=== PATIENT | female | born 1935 | race Hispanic/Latino ===

== ENCOUNTER 2021-05-05 18:22 | Inpatient (IN) | payer MEDICARE, MEDICAID ==
--- NOTE | 2021-05-05 19:50 | EDM.PDOC ---
<Km Taveras - Last Filed: 05/07/21 13:26> ED HPI GENERAL MEDICAL PROBLEM - General Chief Complaint: Skin Complaint Stated Complaint: PEÑA AMB Time Seen by Provider: 05/05/21 20:00 - Related Data Allergies Allergy/AdvReac Type Severity Reaction Status Date / Time carisoprodol [From Soma] Allergy Other Verified 05/05/21 19:11 fentanyl Allergy Other Verified 05/05/21 19:11 Sulfa (Sulfonamide Allergy Other Verified 05/05/21 19:11 Antibiotics) Home Meds: Home Meds Aspirin 1 tab PO DAILY 05/05/21 [History] Carboxymethylcellulose Sodium [Refresh Plus] 1 drop EYEBOTH BID 05/05/21 [History] Cholecalciferol (Vitamin D3) [Vitamin D3] 3 cap PO DAILY 05/05/21 [History] Clopidogrel Bisulfate [Plavix] 75 mg PO DAILY 05/05/21 [History] Furosemide [Lasix] 20 mg PO ASDIRECTED 05/05/21 [History] Gabapentin [Neurontin] 300 mg PO BEDTIME 05/05/21 [History] Insulin Detemir [Levemir Flextouch] 10 unit SQ DAILY 05/05/21 [History] Isosorbide Mononitrate [Imdur] 30 mg PO DAILY 05/05/21 [History] Levothyroxine [Synthroid] 100 mcg PO ACBREAKFAST 05/05/21 [History] Mirtazapine [Remeron] 15 mg PO BEDTIME 05/05/21 [History] Carboxymethylcellulose Sodium [Refresh Plus] 1 drop EYEBOTH Q4H PRN 05/06/21 [History] Hydrocodone/Acetaminophen [HYDROcodone-Acetaminophen 10-325 MG] 1 tab PO BID 05/06/21 [History] Hydrocodone/Acetaminophen [HYDROcodone-Acetaminophen 5-325 MG] 1 tab PO Q4H PRN 05/06/21 [History] cefTRIAXone Sodium [Ceftriaxone] 2 gm IV DAILY 05/06/21 [History] Past Medical History Cardiovascular History: Reports: Blood Clots/VTE/DVT, Heart Failure, High Cholesterol, Hypertension Other Gastrointestinal History: ulcerative colitis Musculoskeletal History: Reports: Arthritis Other Neuro History: craniotomy and excision of brain neoplasm Psychiatric History: Reports: Dementia, Depression Endocrine/Metabolic History: Reports: Hypomagnesemia - Past Surgical History GI Surgical History: Reports: Appendectomy, Cholecystectomy Other Female Surgeries/Procedures: excision of mammary duct fistula Social & Family History - Tobacco Use Tobacco Use Status *Q: Never Tobacco User Second Hand Smoke Exposure: No - Caffeine Use Caffeine Use: Reports: None - Recreational Drug Use Recreational Drug Use: No #1 Interpretation EKG Date: 05/05/21 Time: 19:34 Rhythm: A-Fib (Rate of 100 to 150 bpm) Rate (Beats/Min): 125 Wheeler: Normal P-Wave: Absent QRS: Other (Increased amplitude in both the limb and precordial leads.) ST-T: Other (Irregular baseline in the limb leads. No convincing evidence of any premature contractions) QT: Normal EKG Interpretation Comments: Abnormal ECG Departure - Departure Disposition: Admitted As Inpatient 64 Clinical Impression: Abscess, Perirectal abscess, New onset a-fib, Abnormal CT scan, chest, History of rectal cancer Heart failure Qualifiers: Heart failure type: unspecified Heart failure chronicity: unspecified Qualified Code(s): I50.9 - Heart failure, unspecified Type II diabetes mellitus Qualifiers: Diabetes mellitus detention insulin use: with detention use Diabetes mellitus complication status: with other specified complication Qualified Code(s): E11.69 - Type 2 diabetes mellitus with other specified complication Renal failure Qualifiers: Renal failure chronicity: unspecified chronicity Qualified Code(s): N19 - Unspecified kidney failure - Discharge Information Sepsis Event Note (ED) - Evaluation Sepsis Screening Result: No Definite Risk <Elver Allred - Last Filed: 05/10/21 14:17> ED HPI GENERAL MEDICAL PROBLEM - General Source of Information: Reports: Old Records, Other (Transfer records) History Limitations: Reports: Altered Mental Status - History of Present Illness INITIAL COMMENTS - FREE TEXT/NARRATIVE: Patient has been having right buttock pain and diarrhea for several weeks. Recently she had katie weak. She was taken to [facility] where a large perirectal abscess was found and she was transferred here for further care. Onset: Gradual Duration: Week(s): (4) Location: Reports: Abdomen, Back Quality: Reports: Dull Severity: Severe Worsens with: Reports: Movement Context: Reports: Other (infection) Associated Symptoms: Reports: No Other Symptoms Past Medical History Cardiovascular History: Reports: None, Heart Failure, High Cholesterol, Hypert ension Gastrointestinal History: Reports: Other (See Below) (prior rectal cancer) Musculoskeletal History: Reports: Arthritis Endocrine/Metabolic History: Reports: Hypomagnesemia Other Oncologic History: Rectal cancer - Past Surgical History GI Surgical History: Reports: Appendectomy, Cholecystectomy Other GI Surgeries/Procedures: LAR for rectal cancer with ileostomy 2012 then ileostomy reversal 2013 ED ROS GENERAL - Review of Systems Review Of Systems: See Below Constitutional: Reports: Weakness, Fatigue, Decreased Appetite HEENT: Reports: No Symptoms Respiratory: Reports: No Symptoms Cardiovascular: Reports: No Symptoms Endocrine: Reports: No Symptoms GI/Abdominal: Reports: Anorexia, Diarrhea : Reports: No Symptoms Musculoskeletal: Reports: Other (right buttock pain) ED EXAM, SKIN/RASH Exam: See Below Exam Limited By: Altered Mental Status General Appearance: Alert, No Apparent Distress Respiratory/Chest: No Respiratory Distress, Lungs Clear, Normal Breath Sounds, No Accessory Muscle Use Cardiovascular: Normal Peripheral Pulses, Irregularly Irregular GI/Abdominal: Soft, Non-Tender, No Distention Extremities: Other (pain and induration in the right posterior thigh and right buttock.) Course - Vital Signs Last Recorded V/S: Last Vital Signs Temp 98.1 F 05/06/21 17:01 Pulse 78 05/06/21 17:01 Resp 18 05/06/21 17:01 BP 112/55 L 05/06/21 17:01 Pulse Ox 90 L 05/06/21 14:39 - Orders/Labs/Meds Labs: Laboratory Tests 05/05/21 05/05/21 05/05/21 Range/Units 19:20 19:20 19:20 WBC 19.93 H (3.98-10.04) K/mm3 RBC 3.56 L (3.98-5.22) M/mm3 Hgb 10.0 L (11.2-15.7) gm/dl Hct 31.9 L (34.1-44.9) % MCV 89.6 (79.4-94.8) fl MCH 28.1 (25.6-32.2) pg MCHC 31.3 L (32.2-35.5) g/dl RDW Std Deviation 50.3 H (36.4-46.3) fL Plt Count 398 H (182-369) K/mm3 MPV 9.0 L (9.4-12.3) fl Neut % (Auto) 85.7 H (34.0-71.1) % Lymph % (Auto) 6.0 L (19.3-51.7) % [place] % (Auto) 7.6 (4.7-12.5) % Eos % (Auto) 0.1 L (0.7-5.8) Baso % (Auto) 0.1 (0.1-1.2) % Neut # (Auto) 17.09 H (1.56-6.13) K/mm3 Lymph # (Auto) 1.20 (1.18-3.74) K/mm3 [place] # (Auto) 1.52 H (0.24-0.36) K/mm3 Eos # (Auto) 0.01 L (0.04-0.36) K/mm3 Baso # (Auto) 0.01 (0.01-0.08) K/mm3 Manual Slide Review Abnormal smear PT 12.5 H (9.7-12.0) SECONDS INR 1.13 APTT 28.7 (21.7-31.4) SECONDS Sodium 132 L (136-145) mEq/L Potassium 5.1 (3.5-5.1) mEq/L Chloride 96 L (98-107) mEq/L Carbon Dioxide 22 (21-32) mEq/L Anion Gap 19.1 H (5-15) BUN 46 H (7-18) mg/dL Creatinine 1.6 H (0.55-1.02) mg/dL Est Cr Clr Drug Dosing 17.79 mL/min Estimated GFR (MDRD) 30 (>60) mL/min BUN/Creatinine Ratio 28.8 H (14-18) Glucose 219 H (70-99) mg/dL POC Glucose (70-99) mg/dL Hemoglobin A1c ( - 5.6) % Calcium 8.2 L (8.5-10.1) mg/dL Magnesium (1.8-2.4) mg/dL Total Bilirubin 0.3 (0.2-1.0) mg/dL AST 38 H (15-37) U/L ALT 22 (14-59) U/L Alkaline Phosphatase 165 H (46-116) U/L C-Reactive Protein 32.0 H* (<1.0) mg/dL NT-Pro-B Natriuret Pep (0-450) pg/mL Total Protein 6.5 (6.4-8.2) g/dl Albumin 1.6 L (3.4-5.0) g/dl Globulin 4.9 gm/dL Albumin/Globulin Ratio 0.3 L (1-2) Influenza Type A RNA (NEGATIVE) Influenza Type B RNA (NEGATIVE) SARS-CoV-2 RNA (MADDY) (NEGATIVE) 05/05/21 05/05/21 05/05/21 Range/Units 19:20 19:20 19:20 WBC (3.98-10.04) K/mm3 RBC (3.98-5.22) M/mm3 Hgb (11.2-15.7) gm/dl Hct (34.1-44.9) % MCV (79.4-94.8) fl MCH (25.6-32.2) pg MCHC (32.2-35.5) g/dl RDW Std Deviation (36.4-46.3) fL Plt Count (182-369) K/mm3 MPV (9.4-12.3) fl Neut % (Auto) (34.0-71.1) % Lymph % (Auto) (19.3-51.7) % [place] % (Auto) (4.7-12.5) % Eos % (Auto) (0.7-5.8) Baso % (Auto) (0.1-1.2) % Neut # (Auto) (1.56-6.13) K/mm3 Lymph # (Auto) (1.18-3.74) K/mm3 [place] # (Auto) (0.24-0.36) K/mm3 Eos # (Auto) (0.04-0.36) K/mm3 Baso # (Auto) (0.01-0.08) K/mm3 Manual Slide Review PT (9.7-12.0) SECONDS INR APTT (21.7-31.4) SECONDS Sodium (136-145) mEq/L Potassium (3.5-5.1) mEq/L Chloride (98-107) mEq/L Carbon Dioxide (21-32) mEq/L Anion Gap (5-15) BUN (7-18) mg/dL Creatinine (0.55-1.02) mg/dL Est Cr Clr Drug Dosing mL/min Estimated GFR (MDRD) (>60) mL/min BUN/Creatinine Ratio (14-18) Glucose (70-99) mg/dL POC Glucose (70-99) mg/dL Hemoglobin A1c 6.7 H ( - 5.6) % Calcium (8.5-10.1) mg/dL Magnesium 2.0 (1.8-2.4) mg/dL Total Bilirubin (0.2-1.0) mg/dL AST (15-37) U/L ALT (14-59) U/L Alkaline Phosphatase (46-116) U/L C-Reactive Protein (<1.0) mg/dL NT-Pro-B Natriuret Pep 69308 H (0-450) pg/mL Total Protein (6.4-8.2) g/dl Albumin (3.4-5.0) g/dl Globulin gm/dL Albumin/Globulin Ratio (1-2) Influenza Type A RNA (NEGATIVE) Influenza Type B RNA (NEGATIVE) SARS-CoV-2 RNA (MADDY) (NEGATIVE) 05/05/21 05/05/21 Range/Units 19:49 20:16 WBC (3.98-10.04) K/mm3 RBC (3.98-5.22) M/mm3 Hgb (11.2-15.7) gm/dl Hct (34.1-44.9) % MCV (79.4-94.8) fl MCH (25.6-32.2) pg MCHC (32.2-35.5) g/dl RDW Std Deviation (36.4-46.3) fL Plt Count (182-369) K/mm3 MPV (9.4-12.3) fl Neut % (Auto) (34.0-71.1) % Lymph % (Auto) (19.3-51.7) % [place] % (Auto) (4.7-12.5) % Eos % (Auto) (0.7-5.8) Baso % (Auto) (0.1-1.2) % Neut # (Auto) (1.56-6.13) K/mm3 Lymph # (Auto) (1.18-3.74) K/mm3 [place] # (Auto) (0.24-0.36) K/mm3 Eos # (Auto) (0.04-0.36) K/mm3 Baso # (Auto) (0.01-0.08) K/mm3 Manual Slide Review PT (9.7-12.0) SECONDS INR APTT (21.7-31.4) SECONDS Sodium (136-145) mEq/L Potassium (3.5-5.1) mEq/L Chloride (98-107) mEq/L Carbon Dioxide (21-32) mEq/L Anion Gap (5-15) BUN (7-18) mg/dL Creatinine (0.55-1.02) mg/dL Est Cr Clr Drug Dosing mL/min Estimated GFR (MDRD) (>60) mL/min BUN/Creatinine Ratio (14-18) Glucose (70-99) mg/dL POC Glucose 196 H (70-99) mg/dL Hemoglobin A1c ( - 5.6) % Calcium (8.5-10.1) mg/dL Magnesium (1.8-2.4) mg/dL Total Bilirubin (0.2-1.0) mg/dL AST (15-37) U/L ALT (14-59) U/L Alkaline Phosphatase (46-116) U/L C-Reactive Protein (<1.0) mg/dL NT-Pro-B Natriuret Pep (0-450) pg/mL Total Protein (6.4-8.2) g/dl Albumin (3.4-5.0) g/dl Globulin gm/dL Albumin/Globulin Ratio (1-2) Influenza Type A RNA Negative (NEGATIVE) Influenza Type B RNA Negative (NEGATIVE) SARS-CoV-2 RNA (MADDY) Negative (NEGATIVE) Meds: Medications Discontinued Medications Generic Name Dose Route Start Last Admin Trade Name Freq PRN Reason Stop Dose Admin Acetaminophen 650 mg 05/05/21 21:14 Acetaminophen 325 Mg Tab PO Q4H PRN Pain (Mild 1-3)/fever Hydrocodone Bitart/Acetaminophen 1 tab 05/05/21 21:14 05/06/21 17:07 Acetaminophen/Hydrocodone 325-5 Mg Tab PO 1 tab Q4H PRN Administration Pain (moderate 4-6) Artificial Tears 0 ml 05/06/21 09:00 05/06/21 09:25 Carboxymethylcellulose Sodium 1% Ophth Gel 15 Ml Bottle EYEBOTH 1 drop BID JAZIEL Administration Aspirin 81 mg 05/06/21 09:00 05/06/21 09:18 Aspirin 81 Mg Tab.Ec PO 81 mg DAILY JAZIEL Administration Enoxaparin Sodium 30 mg 05/06/21 09:00 Enoxaparin 30 Mg/0.3 Ml Syringe SUBCUT DAILY [facility] Heparin Sodium (Porcine) 5,000 units 05/06/21 08:45 05/06/21 09:18 Heparin Sodium 5,000 Units/Ml Vial SUBCUT 5,000 units Q8H JAZIEL Administration Hydromorphone HCl 0.5 mg 05/05/21 21:14 Hydromorphone 0.5 Mg/0.5 Ml Syringe IVPUSH Q2H PRN Pain (severe 7-10) Lactated Ringer's 1,000 mls @ 100 mls/hr 05/05/21 21:15 05/06/21 15:11 Ringers, Lactated IV 100 mls/hr ASDIRECTED JAZIEL Administration Piperacillin Sod/Tazobactam 100 mls @ 200 mls/hr 05/05/21 23:45 05/06/21 00:13 Sod 4.5 gm/ Sodium Chloride IV 05/06/21 00:14 200 mls/hr ONETIME ONE Administration Piperacillin Sod/Tazobactam 100 mls @ 25 mls/hr 05/06/21 12:00 05/06/21 12:22 Sod 4.5 gm/ Sodium Chloride IV 25 mls/hr Q12H JAZIEL Administration Lactated Ringer's 500 mls @ 999 mls/hr 05/06/21 05:08 05/06/21 05:35 Ringers, Lactated IV 05/06/21 05:39 999 mls/hr ASDIRECTED JAZIEL Administration Lactated Ringer's 1,000 mls @ 999 mls/hr 05/06/21 07:36 05/06/21 08:09 Ringers, Lactated IV 05/06/21 08:36 999 mls/hr .BOLUS ONE Administration Lactated Ringer's 500 mls @ 999 mls/hr 05/06/21 09:39 05/06/21 10:12 Ringers, Lactated IV 05/06/21 10:09 999 mls/hr .BOLUS ONE Administration Insulin Aspart 0 unit 05/05/21 22:00 Insulin Aspart Protamine/Insulin Aspart 70-30 100 Units/Ml 10 Ml Vial SUBCUT QIDACANDBED JAZIEL Protocol Insulin Glargine 15 unit 05/06/21 09:00 05/06/21 09:25 Insulin Glargine,Hum.Rec.Anlog 100 Unit/Ml 3 Ml Pen SUBCUT 15 units DAILY [facility] Administration Insulin Glargine 5 unit 05/07/21 09:00 Insulin Glargine,Hum.Rec.Anlog 100 Unit/Ml 3 Ml Pen SUBCUT DAILY [facility] Insulin Human Lispro 0 unit 05/06/21 07:30 05/06/21 08:11 Insulin Lispro 100 Unit/Ml 3 Ml Kwikpen SUBCUT 2 units WITHMEALSANDBED [facility] Administration Protocol Insulin Human Lispro 0 unit 05/06/21 12:00 05/06/21 12:03 Insulin Lispro 100 Unit/Ml 3 Ml Kwikpen SUBCUT Not Given Q6H [facility] Protocol Isosorbide Mononitrate 30 mg 05/06/21 09:00 05/06/21 09:25 Isosorbide Mononitrate 30 Mg Tab.Er PO Not Given DAILY [facility] Levothyroxine Sodium 100 mcg 05/06/21 09:00 05/06/21 09:18 Levothyroxine 100 Mcg Tab PO 100 mcg ACBREAKFAST JAZIEL Administration Metoprolol Tartrate 5 mg 05/05/21 22:45 05/05/21 23:50 Metoprolol Tartrate 5 Mg/5 Ml Sdv IVPUSH 05/05/21 22:46 5 mg ONETIME ONE Administration Metoprolol Tartrate 2.5 mg 05/06/21 08:46 Metoprolol Tartrate 5 Mg/5 Ml Sdv IVPUSH Q4H PRN Tachycardia Ondansetron HCl 4 mg 05/05/21 21:14 Ondansetron 4 Mg/2 Ml Sdv IV Q4H PRN Nausea/Vomiting Simvastatin 40 mg 05/06/21 21:00 Simvastatin 40 Mg Tab PO BEDTIME [facility] Zolpidem Tartrate 5 mg 05/05/21 21:14 Zolpidem 5 Mg Tab PO BEDTIME PRN Sleep Departure - Departure Time of Disposition: 20:40 - Discharge Information *PRESCRIPTION DRUG MONITORING PROGRAM REVIEWED*: Not Applicable *COPY OF PRESCRIPTION DRUG MONITORING REPORT IN PATIENT HERMILA: Not Applicable - Problem List Review Problem List Initiated/Reviewed/Updated: No - Assessment/Plan Assessment:: Patient with large perirectal abscess. I am concerned that the patient may have disruption of her colorectal anastomosis and may need extensive surgical debridement and diversion. Given her comorbidities, it is best she gets transferred to a tertiary care center. Plan: Please see H&P from the day of admission for complete plan. - admit, IV abx, Afib control, monitor, then transfer as soon as a bed becomes available at a tertiary care center. This plan was discussed with the patient's POA who agreed.
[2021-05-05 19:54] LABS: HEMOGLOBIN A1C 6.7 %
[2021-05-05 20:23] LABS: CORONAVIRUS COVID-19 NAA NEGATIVE (NEGATIVE)
--- NOTE | 2021-05-05 21:04 | PCM.HP.2 ---
H&P History of Present Illness - General Date of Service: 05/05/21 Source of Information: Patient - History of Present Illness Initial Comments - Free Text/Narative: Patient was transferred from [facility] for perirectal abscess. Patient is a poor historian, part of the information is obtained from chart review. She reports that she has been having right buttock pain for sometimes now, about two weeks. This was associated with some chills but no fevers. The pain worsened to a point where she had to get an evaluation that's why she went to the [facility] ER. At the Er there, she was found to have extensive perirectal abscess. Due to lack of beds, I was called about the patient and agree that she should be transferred here for further evaluation. Per her chart review, I found out that she had rectal cancer s/p LAR with diverting loop ileostomy in 2012 and she underwent ileostomy reversal in 2013. Not clear about her follow up colonoscopies. She has Afib, CHF, DM2, Hypothyroidism, depression, Crohn's disease, mixed hyperlipidemia, CKD, Confusion state, Orthostatic hypotension. I reviewed her CT imaging, she has an extensive perirectal abscess starting from what appears to be her colorectal anastomosis and extending through the right gluteal muscles into the right hamstring muscles.She is on ASA and Plavix. Onset of Symptoms: Reports: Gradual Duration of Symptoms: Reports: Week(s): (2), Getting Worse Location: Reports: Abdomen, Back, Lower Extremity, Right Quality: Reports: Ache Severity: Severe Improves with: Reports: None Worsens with: Reports: None Associated Symptoms: Reports: Malaise - Related Data Allergies/Adverse Reactions: Allergies Allergy/AdvReac Type Severity Reaction Status Date / Time carisoprodol [From Soma] Allergy Other Verified 05/05/21 19:11 fentanyl Allergy Other Verified 05/05/21 19:11 Sulfa (Sulfonamide Allergy Other Verified 05/05/21 19:11 Antibiotics) Past Medical History Cardiovascular History: Reports: Blood Clots/VTE/DVT, Heart Failure, High Cholesterol, Hypertension Other Gastrointestinal History: ulcerative colitis Musculoskeletal History: Reports: Arthritis Other Neuro History: craniotomy and excision of brain neoplasm Psychiatric History: Reports: Dementia, Depression Endocrine/Metabolic History: Reports: Hypomagnesemia - Past Surgical History GI Surgical History: Reports: Appendectomy, Cholecystectomy Other Female Surgeries/Procedures: excision of mammary duct fistula Social & Family History - Tobacco Use Tobacco Use Status *Q: Never Tobacco User Second Hand Smoke Exposure: No - Caffeine Use Caffeine Use: Reports: None - Recreational Drug Use Recreational Drug Use: No H&P Review of Systems - Review of Systems: Review Of Systems: See Below General: Reports: Chills HEENT: Reports: No Symptoms Pulmonary: Reports: No Symptoms Cardiovascular: Reports: No Symptoms, Blood Pressure Problem Gastrointestinal: Reports: No Symptoms Genitourinary: Reports: No Symptoms Musculoskeletal: Reports: Other (right buttock and lef pain) Exam - Exam Exam: See Below - Vital Signs Vital Signs: Last Vital Signs Temp 97.2 F 05/05/21 18:29 Pulse 94 05/05/21 18:29 Resp 18 05/05/21 18:29 BP 126/83 05/05/21 18:29 Pulse Ox 99 05/05/21 18:29 Weight: 63.957 kg - Exam Quality Assessment: Supplemental Oxygen General: Alert, Oriented, Cooperative Lungs: Clear to Auscultation, Normal Respiratory Effort Cardiovascular: Irregular Rhythm GI/Abdominal Exam: Soft, Non-Tender, No Distention, No Abnormal Bruit Extremities: Other (indurated but not non-erythematous right buttock, tender to palpation. Right hamstring is soft and non-indurated) - Patient Data Lab Results Last 24 hrs: Laboratory Results - last 24 hr 05/05/21 05/05/21 05/05/21 Range/Units 19:20 19:20 19:20 WBC 19.93 H (3.98-10.04) K/mm3 RBC 3.56 L (3.98-5.22) M/mm3 Hgb 10.0 L (11.2-15.7) gm/dl Hct 31.9 L (34.1-44.9) % MCV 89.6 (79.4-94.8) fl MCH 28.1 (25.6-32.2) pg MCHC 31.3 L (32.2-35.5) g/dl RDW Std Deviation 50.3 H (36.4-46.3) fL Plt Count 398 H (182-369) K/mm3 MPV 9.0 L (9.4-12.3) fl Neut % (Auto) 85.7 H (34.0-71.1) % Lymph % (Auto) 6.0 L (19.3-51.7) % [place] % (Auto) 7.6 (4.7-12.5) % Eos % (Auto) 0.1 L (0.7-5.8) Baso % (Auto) 0.1 (0.1-1.2) % Neut # (Auto) 17.09 H (1.56-6.13) K/mm3 Lymph # (Auto) 1.20 (1.18-3.74) K/mm3 [place] # (Auto) 1.52 H (0.24-0.36) K/mm3 Eos # (Auto) 0.01 L (0.04-0.36) K/mm3 Baso # (Auto) 0.01 (0.01-0.08) K/mm3 Manual Slide Review Abnormal smear PT 12.5 H (9.7-12.0) SECONDS INR 1.13 APTT 28.7 (21.7-31.4) SECONDS Sodium 132 L (136-145) mEq/L Potassium 5.1 (3.5-5.1) mEq/L Chloride 96 L (98-107) mEq/L Carbon Dioxide 22 (21-32) mEq/L Anion Gap 19.1 H (5-15) BUN 46 H (7-18) mg/dL Creatinine 1.6 H (0.55-1.02) mg/dL Est Cr Clr Drug Dosing 17.79 mL/min Estimated GFR (MDRD) 30 (>60) mL/min BUN/Creatinine Ratio 28.8 H (14-18) Glucose 219 H (70-99) mg/dL POC Glucose (70-99) mg/dL Hemoglobin A1c ( - 5.6) % Calcium 8.2 L (8.5-10.1) mg/dL Magnesium (1.8-2.4) mg/dL Total Bilirubin 0.3 (0.2-1.0) mg/dL AST 38 H (15-37) U/L ALT 22 (14-59) U/L Alkaline Phosphatase 165 H (46-116) U/L C-Reactive Protein 32.0 H* (<1.0) mg/dL NT-Pro-B Natriuret Pep (0-450) pg/mL Total Protein 6.5 (6.4-8.2) g/dl Albumin 1.6 L (3.4-5.0) g/dl Globulin 4.9 gm/dL Albumin/Globulin Ratio 0.3 L (1-2) 05/05/21 05/05/21 05/05/21 Range/Units 19:20 19:20 19:20 WBC (3.98-10.04) K/mm3 RBC (3.98-5.22) M/mm3 Hgb (11.2-15.7) gm/dl Hct (34.1-44.9) % MCV (79.4-94.8) fl MCH (25.6-32.2) pg MCHC (32.2-35.5) g/dl RDW Std Deviation (36.4-46.3) fL Plt Count (182-369) K/mm3 MPV (9.4-12.3) fl Neut % (Auto) (34.0-71.1) % Lymph % (Auto) (19.3-51.7) % [place] % (Auto) (4.7-12.5) % Eos % (Auto) (0.7-5.8) Baso % (Auto) (0.1-1.2) % Neut # (Auto) (1.56-6.13) K/mm3 Lymph # (Auto) (1.18-3.74) K/mm3 [place] # (Auto) (0.24-0.36) K/mm3 Eos # (Auto) (0.04-0.36) K/mm3 Baso # (Auto) (0.01-0.08) K/mm3 Manual Slide Review PT (9.7-12.0) SECONDS INR APTT (21.7-31.4) SECONDS Sodium (136-145) mEq/L Potassium (3.5-5.1) mEq/L Chloride (98-107) mEq/L Carbon Dioxide (21-32) mEq/L Anion Gap (5-15) BUN (7-18) mg/dL Creatinine (0.55-1.02) mg/dL Est Cr Clr Drug Dosing mL/min Estimated GFR (MDRD) (>60) mL/min BUN/Creatinine Ratio (14-18) Glucose (70-99) mg/dL POC Glucose (70-99) mg/dL Hemoglobin A1c 6.7 H ( - 5.6) % Calcium (8.5-10.1) mg/dL Magnesium 2.0 (1.8-2.4) mg/dL Total Bilirubin (0.2-1.0) mg/dL AST (15-37) U/L ALT (14-59) U/L Alkaline Phosphatase (46-116) U/L C-Reactive Protein (<1.0) mg/dL NT-Pro-B Natriuret Pep 26481 H (0-450) pg/mL Total Protein (6.4-8.2) g/dl Albumin (3.4-5.0) g/dl Globulin gm/dL Albumin/Globulin Ratio (1-2) 05/05/21 Range/Units 20:16 WBC (3.98-10.04) K/mm3 RBC (3.98-5.22) M/mm3 Hgb (11.2-15.7) gm/dl Hct (34.1-44.9) % MCV (79.4-94.8) fl MCH (25.6-32.2) pg MCHC (32.2-35.5) g/dl RDW Std Deviation (36.4-46.3) fL Plt Count (182-369) K/mm3 MPV (9.4-12.3) fl Neut % (Auto) (34.0-71.1) % Lymph % (Auto) (19.3-51.7) % [place] % (Auto) (4.7-12.5) % Eos % (Auto) (0.7-5.8) Baso % (Auto) (0.1-1.2) % Neut # (Auto) (1.56-6.13) K/mm3 Lymph # (Auto) (1.18-3.74) K/mm3 Mer[place] # (Auto) (0.24-0.36) K/mm3 Eos # (Auto) (0.04-0.36) K/mm3 Baso # (Auto) (0.01-0.08) K/mm3 Manual Slide Review PT (9.7-12.0) SECONDS INR APTT (21.7-31.4) SECONDS Sodium (136-145) mEq/L Potassium (3.5-5.1) mEq/L Chloride (98-107) mEq/L Carbon Dioxide (21-32) mEq/L Anion Gap (5-15) BUN (7-18) mg/dL Creatinine (0.55-1.02) mg/dL Est Cr Clr Drug Dosing mL/min Estimated GFR (MDRD) (>60) mL/min BUN/Creatinine Ratio (14-18) Glucose (70-99) mg/dL POC Glucose 196 H (70-99) mg/dL Hemoglobin A1c ( - 5.6) % Calcium (8.5-10.1) mg/dL Magnesium (1.8-2.4) mg/dL Total Bilirubin (0.2-1.0) mg/dL AST (15-37) U/L ALT (14-59) U/L Alkaline Phosphatase (46-116) U/L C-Reactive Protein (<1.0) mg/dL NT-Pro-B Natriuret Pep (0-450) pg/mL Total Protein (6.4-8.2) g/dl Albumin (3.4-5.0) g/dl Globulin gm/dL Albumin/Globulin Ratio (1-2) Result Diagrams: 05/05/21 19:20 05/05/21 19:20 Sepsis Event Note - Evaluation Sepsis Screening Result: No Definite Risk - Focused Exam Vital Signs: Vital Signs Temp Pulse Resp BP Pulse Ox 05/05/21 18:29 97.2 F 94 18 126/83 99 Problem List Initiated/Reviewed/Updated: No Orders Last 24hrs: Active Orders 24 hr Category Date Time Status POC Glucose [Blood Glucose Check, Bedside] [RC] ONETIME Care 05/05/21 18:42 Active Chest 1V Frontal [CR] Stat Exams 05/05/21 18:41 Taken BLOOD CULTURE [MREF] Stat Lab 05/05/21 19:07 Received BLOOD CULTURE [MREF] Stat Lab 05/05/21 19:20 Received COVID-19/FLU A+B [MOLEC] Stat Lab 05/05/21 19:49 Ordered Blood Culture x2 Reflex Set [OM.PC] Stat Oth 05/05/21 18:42 Ordered Assessment/Plan Comment:: Patient has an extensive perirectal abscess likely from dehiscence of her colorectal anastomosis. My concern is that she might have a rectal cancer recurrence causing all this. Plan - she needs to be transferred to a tertiary care center but no available beds in the [facility] at this time. So we will admit for expectant care at this time. We will consult hospitalist for assistance with medical management Abscess - Zosyn - IVF - NPO Afib - rate control - Hold Plavix CHF - BNP 71332 - Hold lasix at this time DM2 - SSI - Resume some home meds We will continue to monitor her status. - Mortality Measure Prognosis:: Poor (due to extent of her disease and comorbid conditions)
[2021-05-05] MEDS ORDERED: HYDROmorphone 0.5 MG/0.5 ML Syringe IVPUSH PRN (21:14)
[2021-05-05] MEDS ORDERED: Zolpidem 5 MG Tab PO PRN (21:14)
[2021-05-05] MEDS ORDERED: Acetaminophen/HYDROcodone 325-5 MG Tab PO PRN (21:14)
[2021-05-05] MEDS ORDERED: Ondansetron 4 MG/2 ML SDV IV PRN (21:14)
[2021-05-05] MEDS ORDERED: Acetaminophen 325 MG Tab PO PRN (21:14)
[2021-05-05] MEDS ORDERED: Insulin Aspart Protamine/Insulin Aspart 70-30 100 Units/ML 10 ML Vial SUBCUT SCH (22:00)
[2021-05-05] MEDS ORDERED: Metoprolol Tartrate 5 MG in Sodium Chloride 0.9% 50 ML IV ONE (22:32)
[2021-05-05] MEDS ORDERED: Metoprolol Tartrate 5 MG/5 ML SDV IVPUSH ONE (22:45)
[2021-05-05] MEDS: Lactated Ringers 1,000 ML IV SCH (23:04)
[2021-05-05] MEDS ORDERED: Piperacillin/Tazobactam 4.5 GM in Sodium Chloride 0.9% 100 ML IV ONE (23:45)
[2021-05-06] MEDS ORDERED: Lactated Ringers 500 ML IV SCH (05:08)
[2021-05-06] MEDS ORDERED: Insulin Lispro 100 Unit/ML 3 ML KwikPen SUBCUT SCH ×2 (07:30→12:00)
[2021-05-06] MEDS ORDERED: Lactated Ringers 1,000 ML IV ONE (07:36)
--- NOTE | 2021-05-06 08:03 | PCM.PN ---
- General Info Date of Service: 05/06/21 Subjective Update: Afib is now resolved. She does have occational PACs. Otherwise she does not have much complaints this AM. Functional Status: Reports: Pain Controlled - Review of Systems General: Reports: No Symptoms HEENT: Reports: No Symptoms Pulmonary: Reports: No Symptoms Cardiovascular: Reports: No Symptoms Gastrointestinal: Reports: No Symptoms Genitourinary: Reports: No Symptoms - Patient Data Vitals - Most Recent: Last Vital Signs Temp 97.9 F 05/06/21 04:56 Pulse 90 05/06/21 05:03 Resp 20 05/06/21 04:56 BP 110/47 L 05/06/21 06:14 Pulse Ox 90 L 05/06/21 04:56 Weight - Most Recent: 63.231 kg I&O - Last 24 Hours: Intake & Output 05/05/21 05/06/21 05/06/21 22:59 06:59 14:59 Intake Total 554 Balance 554 Lab Results Last 24 Hours: Laboratory Results - last 24 hr 05/05/21 05/05/21 05/05/21 Range/Units 19:20 19:20 19:20 WBC 19.93 H (3.98-10.04) K/mm3 RBC 3.56 L (3.98-5.22) M/mm3 Hgb 10.0 L (11.2-15.7) gm/dl Hct 31.9 L (34.1-44.9) % MCV 89.6 (79.4-94.8) fl MCH 28.1 (25.6-32.2) pg MCHC 31.3 L (32.2-35.5) g/dl RDW Std Deviation 50.3 H (36.4-46.3) fL Plt Count 398 H (182-369) K/mm3 MPV 9.0 L (9.4-12.3) fl Neut % (Auto) 85.7 H (34.0-71.1) % Lymph % (Auto) 6.0 L (19.3-51.7) % [place] % (Auto) 7.6 (4.7-12.5) % Eos % (Auto) 0.1 L (0.7-5.8) Baso % (Auto) 0.1 (0.1-1.2) % Neut # (Auto) 17.09 H (1.56-6.13) K/mm3 Lymph # (Auto) 1.20 (1.18-3.74) K/mm3 [place] # (Auto) 1.52 H (0.24-0.36) K/mm3 Eos # (Auto) 0.01 L (0.04-0.36) K/mm3 Baso # (Auto) 0.01 (0.01-0.08) K/mm3 Manual Slide Review Abnormal smear PT 12.5 H (9.7-12.0) SECONDS INR 1.13 APTT 28.7 (21.7-31.4) SECONDS Sodium 132 L (136-145) mEq/L Potassium 5.1 (3.5-5.1) mEq/L Chloride 96 L (98-107) mEq/L Carbon Dioxide 22 (21-32) mEq/L Anion Gap 19.1 H (5-15) BUN 46 H (7-18) mg/dL Creatinine 1.6 H (0.55-1.02) mg/dL Est Cr Clr Drug Dosing 17.79 mL/min Estimated GFR (MDRD) 30 (>60) mL/min BUN/Creatinine Ratio 28.8 H (14-18) Glucose 219 H (70-99) mg/dL POC Glucose (70-99) mg/dL Hemoglobin A1c ( - 5.6) % Calcium 8.2 L (8.5-10.1) mg/dL Magnesium (1.8-2.4) mg/dL Total Bilirubin 0.3 (0.2-1.0) mg/dL AST 38 H (15-37) U/L ALT 22 (14-59) U/L Alkaline Phosphatase 165 H (46-116) U/L C-Reactive Protein 32.0 H* (<1.0) mg/dL NT-Pro-B Natriuret Pep (0-450) pg/mL Total Protein 6.5 (6.4-8.2) g/dl Albumin 1.6 L (3.4-5.0) g/dl Globulin 4.9 gm/dL Albumin/Globulin Ratio 0.3 L (1-2) Influenza Type A RNA (NEGATIVE) Influenza Type B RNA (NEGATIVE) SARS-CoV-2 RNA (MADDY) (NEGATIVE) MRSA (PCR) 05/05/21 05/05/21 05/05/21 Range/Units 19:20 19:20 19:20 WBC (3.98-10.04) K/mm3 RBC (3.98-5.22) M/mm3 Hgb (11.2-15.7) gm/dl Hct (34.1-44.9) % MCV (79.4-94.8) fl MCH (25.6-32.2) pg MCHC (32.2-35.5) g/dl RDW Std Deviation (36.4-46.3) fL Plt Count (182-369) K/mm3 MPV (9.4-12.3) fl Neut % (Auto) (34.0-71.1) % Lymph % (Auto) (19.3-51.7) % [place] % (Auto) (4.7-12.5) % Eos % (Auto) (0.7-5.8) Baso % (Auto) (0.1-1.2) % Neut # (Auto) (1.56-6.13) K/mm3 Lymph # (Auto) (1.18-3.74) K/mm3 [place] # (Auto) (0.24-0.36) K/mm3 Eos # (Auto) (0.04-0.36) K/mm3 Baso # (Auto) (0.01-0.08) K/mm3 Manual Slide Review PT (9.7-12.0) SECONDS INR APTT (21.7-31.4) SECONDS Sodium (136-145) mEq/L Potassium (3.5-5.1) mEq/L Chloride (98-107) mEq/L Carbon Dioxide (21-32) mEq/L Anion Gap (5-15) BUN (7-18) mg/dL Creatinine (0.55-1.02) mg/dL Est Cr Clr Drug Dosing mL/min Estimated GFR (MDRD) (>60) mL/min BUN/Creatinine Ratio (14-18) Glucose (70-99) mg/dL POC Glucose (70-99) mg/dL Hemoglobin A1c 6.7 H ( - 5.6) % Calcium (8.5-10.1) mg/dL Magnesium 2.0 (1.8-2.4) mg/dL Total Bilirubin (0.2-1.0) mg/dL AST (15-37) U/L ALT (14-59) U/L Alkaline Phosphatase (46-116) U/L C-Reactive Protein (<1.0) mg/dL NT-Pro-B Natriuret Pep 04718 H (0-450) pg/mL Total Protein (6.4-8.2) g/dl Albumin (3.4-5.0) g/dl Globulin gm/dL Albumin/Globulin Ratio (1-2) Influenza Type A RNA (NEGATIVE) Influenza Type B RNA (NEGATIVE) SARS-CoV-2 RNA (MADDY) (NEGATIVE) MRSA (PCR) 05/05/21 05/05/21 05/06/21 Range/Units 19:49 20:16 02:11 WBC (3.98-10.04) K/mm3 RBC (3.98-5.22) M/mm3 Hgb (11.2-15.7) gm/dl Hct (34.1-44.9) % MCV (79.4-94.8) fl MCH (25.6-32.2) pg MCHC (32.2-35.5) g/dl RDW Std Deviation (36.4-46.3) fL Plt Count (182-369) K/mm3 MPV (9.4-12.3) fl Neut % (Auto) (34.0-71.1) % Lymph % (Auto) (19.3-51.7) % [place] % (Auto) (4.7-12.5) % Eos % (Auto) (0.7-5.8) Baso % (Auto) (0.1-1.2) % Neut # (Auto) (1.56-6.13) K/mm3 Lymph # (Auto) (1.18-3.74) K/mm3 [place] # (Auto) (0.24-0.36) K/mm3 Eos # (Auto) (0.04-0.36) K/mm3 Baso # (Auto) (0.01-0.08) K/mm3 Manual Slide Review PT (9.7-12.0) SECONDS INR APTT (21.7-31.4) SECONDS Sodium (136-145) mEq/L Potassium (3.5-5.1) mEq/L Chloride (98-107) mEq/L Carbon Dioxide (21-32) mEq/L Anion Gap (5-15) BUN (7-18) mg/dL Creatinine (0.55-1.02) mg/dL Est Cr Clr Drug Dosing mL/min Estimated GFR (MDRD) (>60) mL/min BUN/Creatinine Ratio (14-18) Glucose (70-99) mg/dL POC Glucose 196 H (70-99) mg/dL Hemoglobin A1c ( - 5.6) % Calcium (8.5-10.1) mg/dL Magnesium (1.8-2.4) mg/dL Total Bilirubin (0.2-1.0) mg/dL AST (15-37) U/L ALT (14-59) U/L Alkaline Phosphatase (46-116) U/L C-Reactive Protein (<1.0) mg/dL NT-Pro-B Natriuret Pep (0-450) pg/mL Total Protein (6.4-8.2) g/dl Albumin (3.4-5.0) g/dl Globulin gm/dL Albumin/Globulin Ratio (1-2) Influenza Type A RNA Negative (NEGATIVE) Influenza Type B RNA Negative (NEGATIVE) SARS-CoV-2 RNA (MADDY) Negative (NEGATIVE) MRSA (PCR) Negative 05/06/21 05/06/21 05/06/21 Range/Units 05:28 05:28 06:07 WBC 16.61 H (3.98-10.04) K/mm3 RBC 3.46 L (3.98-5.22) M/mm3 Hgb 9.5 L (11.2-15.7) gm/dl Hct 30.7 L (34.1-44.9) % MCV 88.7 (79.4-94.8) fl MCH 27.5 (25.6-32.2) pg MCHC 30.9 L (32.2-35.5) g/dl RDW Std Deviation 50.3 H (36.4-46.3) fL Plt Count 364 (182-369) K/mm3 MPV 9.0 L (9.4-12.3) fl Neut % (Auto) 84.8 H (34.0-71.1) % Lymph % (Auto) 7.7 L (19.3-51.7) % [place] % (Auto) 6.9 (4.7-12.5) % Eos % (Auto) 0 L (0.7-5.8) Baso % (Auto) 0.1 (0.1-1.2) % Neut # (Auto) 14.09 H (1.56-6.13) K/mm3 Lymph # (Auto) 1.28 (1.18-3.74) K/mm3 [place] # (Auto) 1.14 H (0.24-0.36) K/mm3 Eos # (Auto) 0.00 L (0.04-0.36) K/mm3 Baso # (Auto) 0.01 (0.01-0.08) K/mm3 Manual Slide Review PT (9.7-12.0) SECONDS INR APTT (21.7-31.4) SECONDS Sodium 135 L (136-145) mEq/L Potassium 5.0 (3.5-5.1) mEq/L Chloride 102 (98-107) mEq/L Carbon Dioxide 22 (21-32) mEq/L Anion Gap 16.0 H (5-15) BUN 51 H (7-18) mg/dL Creatinine 1.8 H (0.55-1.02) mg/dL Est Cr Clr Drug Dosing 15.82 mL/min Estimated GFR (MDRD) 27 (>60) mL/min BUN/Creatinine Ratio 28.3 H (14-18) Glucose 193 H (70-99) mg/dL POC Glucose 189 H (70-99) mg/dL Hemoglobin A1c ( - 5.6) % Calcium 8.2 L (8.5-10.1) mg/dL Magnesium (1.8-2.4) mg/dL Total Bilirubin (0.2-1.0) mg/dL AST (15-37) U/L ALT (14-59) U/L Alkaline Phosphatase (46-116) U/L C-Reactive Protein (<1.0) mg/dL NT-Pro-B Natriuret Pep (0-450) pg/mL Total Protein (6.4-8.2) g/dl Albumin (3.4-5.0) g/dl Globulin gm/dL Albumin/Globulin Ratio (1-2) Influenza Type A RNA (NEGATIVE) Influenza Type B RNA (NEGATIVE) SARS-CoV-2 RNA (MADDY) (NEGATIVE) MRSA (PCR) Med Orders - Current: Current Medications Acetaminophen (Acetaminophen 325 Mg Tab) 650 mg PO Q4H PRN PRN Reason: Pain (Mild 1-3)/fever Hydrocodone Bitart/Acetaminophen (Acetaminophen/Hydrocodone 325-5 Mg Tab) 1 tab PO Q4H PRN PRN Reason: Pain (moderate 4-6) Aspirin (Aspirin 81 Mg Tab.Ec) 81 mg PO DAILY [facility] Enoxaparin Sodium (Enoxaparin 30 Mg/0.3 Ml Syringe) 30 mg SUBCUT DAILY [facility] Hydromorphone HCl (Hydromorphone 0.5 Mg/0.5 Ml Syringe) 0.5 mg IVPUSH Q2H PRN PRN Reason: Pain (severe 7-10) Lactated Ringer's (Ringers, Lactated) 1,000 mls @ 100 mls/hr IV ASDIRECTED [facility] Last Admin: 05/05/21 23:04 Dose: 100 mls/hr Documented by: Piperacillin Sod/Tazobactam (Sod 4.5 gm/ Sodium Chloride) 100 mls @ 25 mls/hr IV Q12H [facility] Lactated Ringer's (Ringers, Lactated) 1,000 mls @ 999 mls/hr IV .BOLUS ONE Stop: 05/06/21 08:36 Insulin Human Lispro (Insulin Lispro 100 Unit/Ml 3 Ml Kwikpen) 0 unit SUBCUT WITHMEALSANDBED [facility]; Protocol Isosorbide Mononitrate (Isosorbide Mononitrate 30 Mg Tab.Er) 30 mg PO DAILY [facility] Ondansetron HCl (Ondansetron 4 Mg/2 Ml Sdv) 4 mg IV Q4H PRN PRN Reason: Nausea/Vomiting Simvastatin (Simvastatin 40 Mg Tab) 40 mg PO BEDTIME [facility] Zolpidem Tartrate (Zolpidem 5 Mg Tab) 5 mg PO BEDTIME PRN PRN Reason: Sleep Discontinued Medications Piperacillin Sod/Tazobactam (Sod 4.5 gm/ Sodium Chloride) 100 mls @ 200 mls/hr IV ONETIME ONE Stop: 05/06/21 00:14 Last Admin: 05/06/21 00:13 Dose: 200 mls/hr Documented by: Lactated Ringer's (Ringers, Lactated) 500 mls @ 999 mls/hr IV ASDIRECTED [facility] Stop: 05/06/21 05:39 Last Admin: 05/06/21 05:35 Dose: 999 mls/hr Documented by: Insulin Aspart (Insulin Aspart Protamine/Insulin Aspart 70-30 100 Units/Ml 10 Ml Vial) 0 unit SUBCUT QIDACANDBED [facility]; Protocol Metoprolol Tartrate (Metoprolol Tartrate 5 Mg/5 Ml Sdv) 5 mg IVPUSH ONETIME ONE Stop: 05/05/21 22:46 Last Admin: 05/05/21 23:50 Dose: 5 mg Documented by: - Exam General: Alert, Cooperative Lungs: Normal Respiratory Effort Cardiovascular: Regular Rate, Regular Rhythm GI/Abdominal Exam: Soft, Non-Tender - Patient Data Lab Results Last 24 hrs: Laboratory Results - last 24 hr 05/05/21 05/05/21 05/05/21 Range/Units 19:20 19:20 19:20 WBC 19.93 H (3.98-10.04) K/mm3 RBC 3.56 L (3.98-5.22) M/mm3 Hgb 10.0 L (11.2-15.7) gm/dl Hct 31.9 L (34.1-44.9) % MCV 89.6 (79.4-94.8) fl MCH 28.1 (25.6-32.2) pg MCHC 31.3 L (32.2-35.5) g/dl RDW Std Deviation 50.3 H (36.4-46.3) fL Plt Count 398 H (182-369) K/mm3 MPV 9.0 L (9.4-12.3) fl Neut % (Auto) 85.7 H (34.0-71.1) % Lymph % (Auto) 6.0 L (19.3-51.7) % [place] % (Auto) 7.6 (4.7-12.5) % Eos % (Auto) 0.1 L (0.7-5.8) Baso % (Auto) 0.1 (0.1-1.2) % Neut # (Auto) 17.09 H (1.56-6.13) K/mm3 Lymph # (Auto) 1.20 (1.18-3.74) K/mm3 [place] # (Auto) 1.52 H (0.24-0.36) K/mm3 Eos # (Auto) 0.01 L (0.04-0.36) K/mm3 Baso # (Auto) 0.01 (0.01-0.08) K/mm3 Manual Slide Review Abnormal smear PT 12.5 H (9.7-12.0) SECONDS INR 1.13 APTT 28.7 (21.7-31.4) SECONDS Sodium 132 L (136-145) mEq/L Potassium 5.1 (3.5-5.1) mEq/L Chloride 96 L (98-107) mEq/L Carbon Dioxide 22 (21-32) mEq/L Anion Gap 19.1 H (5-15) BUN 46 H (7-18) mg/dL Creatinine 1.6 H (0.55-1.02) mg/dL Est Cr Clr Drug Dosing 17.79 mL/min Estimated GFR (MDRD) 30 (>60) mL/min BUN/Creatinine Ratio 28.8 H (14-18) Glucose 219 H (70-99) mg/dL POC Glucose (70-99) mg/dL Hemoglobin A1c ( - 5.6) % Calcium 8.2 L (8.5-10.1) mg/dL Magnesium (1.8-2.4) mg/dL Total Bilirubin 0.3 (0.2-1.0) mg/dL AST 38 H (15-37) U/L ALT 22 (14-59) U/L Alkaline Phosphatase 165 H (46-116) U/L C-Reactive Protein 32.0 H* (<1.0) mg/dL NT-Pro-B Natriuret Pep (0-450) pg/mL Total Protein 6.5 (6.4-8.2) g/dl Albumin 1.6 L (3.4-5.0) g/dl Globulin 4.9 gm/dL Albumin/Globulin Ratio 0.3 L (1-2) Influenza Type A RNA (NEGATIVE) Influenza Type B RNA (NEGATIVE) SARS-CoV-2 RNA (MADDY) (NEGATIVE) MRSA (PCR) 05/05/21 05/05/21 05/05/21 Range/Units 19:20 19:20 19:20 WBC (3.98-10.04) K/mm3 RBC (3.98-5.22) M/mm3 Hgb (11.2-15.7) gm/dl Hct (34.1-44.9) % MCV (79.4-94.8) fl MCH (25.6-32.2) pg MCHC (32.2-35.5) g/dl RDW Std Deviation (36.4-46.3) fL Plt Count (182-369) K/mm3 MPV (9.4-12.3) fl Neut % (Auto) (34.0-71.1) % Lymph % (Auto) (19.3-51.7) % [place] % (Auto) (4.7-12.5) % Eos % (Auto) (0.7-5.8) Baso % (Auto) (0.1-1.2) % Neut # (Auto) (1.56-6.13) K/mm3 Lymph # (Auto) (1.18-3.74) K/mm3 [place] # (Auto) (0.24-0.36) K/mm3 Eos # (Auto) (0.04-0.36) K/mm3 Baso # (Auto) (0.01-0.08) K/mm3 Manual Slide Review PT (9.7-12.0) SECONDS INR APTT (21.7-31.4) SECONDS Sodium (136-145) mEq/L Potassium (3.5-5.1) mEq/L Chloride (98-107) mEq/L Carbon Dioxide (21-32) mEq/L Anion Gap (5-15) BUN (7-18) mg/dL Creatinine (0.55-1.02) mg/dL Est Cr Clr Drug Dosing mL/min Estimated GFR (MDRD) (>60) mL/min BUN/Creatinine Ratio (14-18) Glucose (70-99) mg/dL POC Glucose (70-99) mg/dL Hemoglobin A1c 6.7 H ( - 5.6) % Calcium (8.5-10.1) mg/dL Magnesium 2.0 (1.8-2.4) mg/dL Total Bilirubin (0.2-1.0) mg/dL AST (15-37) U/L ALT (14-59) U/L Alkaline Phosphatase (46-116) U/L C-Reactive Protein (<1.0) mg/dL NT-Pro-B Natriuret Pep 83637 H (0-450) pg/mL Total Protein (6.4-8.2) g/dl Albumin (3.4-5.0) g/dl Globulin gm/dL Albumin/Globulin Ratio (1-2) Influenza Type A RNA (NEGATIVE) Influenza Type B RNA (NEGATIVE) SARS-CoV-2 RNA (MADDY) (NEGATIVE) MRSA (PCR) 05/05/21 05/05/21 05/06/21 Range/Units 19:49 20:16 02:11 WBC (3.98-10.04) K/mm3 RBC (3.98-5.22) M/mm3 Hgb (11.2-15.7) gm/dl Hct (34.1-44.9) % MCV (79.4-94.8) fl MCH (25.6-32.2) pg MCHC (32.2-35.5) g/dl RDW Std Deviation (36.4-46.3) fL Plt Count (182-369) K/mm3 MPV (9.4-12.3) fl Neut % (Auto) (34.0-71.1) % Lymph % (Auto) (19.3-51.7) % [place] % (Auto) (4.7-12.5) % Eos % (Auto) (0.7-5.8) Baso % (Auto) (0.1-1.2) % Neut # (Auto) (1.56-6.13) K/mm3 Lymph # (Auto) (1.18-3.74) K/mm3 [place] # (Auto) (0.24-0.36) K/mm3 Eos # (Auto) (0.04-0.36) K/mm3 Baso # (Auto) (0.01-0.08) K/mm3 Manual Slide Review PT (9.7-12.0) SECONDS INR APTT (21.7-31.4) SECONDS Sodium (136-145) mEq/L Potassium (3.5-5.1) mEq/L Chloride (98-107) mEq/L Carbon Dioxide (21-32) mEq/L Anion Gap (5-15) BUN (7-18) mg/dL Creatinine (0.55-1.02) mg/dL Est Cr Clr Drug Dosing mL/min Estimated GFR (MDRD) (>60) mL/min BUN/Creatinine Ratio (14-18) Glucose (70-99) mg/dL POC Glucose 196 H (70-99) mg/dL Hemoglobin A1c ( - 5.6) % Calcium (8.5-10.1) mg/dL Magnesium (1.8-2.4) mg/dL Total Bilirubin (0.2-1.0) mg/dL AST (15-37) U/L ALT (14-59) U/L Alkaline Phosphatase (46-116) U/L C-Reactive Protein (<1.0) mg/dL NT-Pro-B Natriuret Pep (0-450) pg/mL Total Protein (6.4-8.2) g/dl Albumin (3.4-5.0) g/dl Globulin gm/dL Albumin/Globulin Ratio (1-2) Influenza Type A RNA Negative (NEGATIVE) Influenza Type B RNA Negative (NEGATIVE) SARS-CoV-2 RNA (MADDY) Negative (NEGATIVE) MRSA (PCR) Negative 05/06/21 05/06/21 05/06/21 Range/Units 05:28 05:28 06:07 WBC 16.61 H (3.98-10.04) K/mm3 RBC 3.46 L (3.98-5.22) M/mm3 Hgb 9.5 L (11.2-15.7) gm/dl Hct 30.7 L (34.1-44.9) % MCV 88.7 (79.4-94.8) fl MCH 27.5 (25.6-32.2) pg MCHC 30.9 L (32.2-35.5) g/dl RDW Std Deviation 50.3 H (36.4-46.3) fL Plt Count 364 (182-369) K/mm3 MPV 9.0 L (9.4-12.3) fl Neut % (Auto) 84.8 H (34.0-71.1) % Lymph % (Auto) 7.7 L (19.3-51.7) % [place] % (Auto) 6.9 (4.7-12.5) % Eos % (Auto) 0 L (0.7-5.8) Baso % (Auto) 0.1 (0.1-1.2) % Neut # (Auto) 14.09 H (1.56-6.13) K/mm3 Lymph # (Auto) 1.28 (1.18-3.74) K/mm3 [place] # (Auto) 1.14 H (0.24-0.36) K/mm3 Eos # (Auto) 0.00 L (0.04-0.36) K/mm3 Baso # (Auto) 0.01 (0.01-0.08) K/mm3 Manual Slide Review PT (9.7-12.0) SECONDS INR APTT (21.7-31.4) SECONDS Sodium 135 L (136-145) mEq/L Potassium 5.0 (3.5-5.1) mEq/L Chloride 102 (98-107) mEq/L Carbon Dioxide 22 (21-32) mEq/L Anion Gap 16.0 H (5-15) BUN 51 H (7-18) mg/dL Creatinine 1.8 H (0.55-1.02) mg/dL Est Cr Clr Drug Dosing 15.82 mL/min Estimated GFR (MDRD) 27 (>60) mL/min BUN/Creatinine Ratio 28.3 H (14-18) Glucose 193 H (70-99) mg/dL POC Glucose 189 H (70-99) mg/dL Hemoglobin A1c ( - 5.6) % Calcium 8.2 L (8.5-10.1) mg/dL Magnesium (1.8-2.4) mg/dL Total Bilirubin (0.2-1.0) mg/dL AST (15-37) U/L ALT (14-59) U/L Alkaline Phosphatase (46-116) U/L C-Reactive Protein (<1.0) mg/dL NT-Pro-B Natriuret Pep (0-450) pg/mL Total Protein (6.4-8.2) g/dl Albumin (3.4-5.0) g/dl Globulin gm/dL Albumin/Globulin Ratio (1-2) Influenza Type A RNA (NEGATIVE) Influenza Type B RNA (NEGATIVE) SARS-CoV-2 RNA (MADDY) (NEGATIVE) MRSA (PCR) Result Diagrams: 05/06/21 05:28 05/06/21 05:28 Sepsis Event Note - Evaluation Sepsis Screening Result: Severe Sepsis Risk - Focused Exam Vital Signs: Vital Signs Temp Temp Pulse Pulse Resp BP BP 05/06/21 06:14 110/47 L 05/06/21 06:11 84/48 L 05/06/21 05:03 90 82/40 L 05/06/21 04:56 97.9 F 96 20 81/33 L 05/06/21 01:40 98.2 F 112 H 18 90/65 05/06/21 00:13 120/87 05/05/21 23:50 135 H 90/40 L 05/05/21 23:27 75/40 L 05/05/21 22:58 82/35 L 05/05/21 22:46 77/46 L 05/05/21 22:15 99.3 F 127 H 16 84/50 L 05/05/21 22:00 97.8 F 135 H 20 118/65 05/05/21 21:16 Pulse Ox 05/06/21 06:14 05/06/21 06:11 05/06/21 05:03 05/06/21 04:56 90 L 05/06/21 01:40 93 L 05/06/21 00:13 05/05/21 23:50 05/05/21 23:27 05/05/21 22:58 05/05/21 22:46 05/05/21 22:15 92 L 05/05/21 22:00 94 L 05/05/21 21:16 94 L - Problem List Review Problem List Initiated/Reviewed/Updated: No - My Orders Last 24 Hours: My Active Orders 05/05/21 Dinner Nothing per Oral Now Diet [DIET] 05/05/21 21:14 Patient Status [ADT] Routine Bedrest Bedside Commode [RC] ASDIRECTED Blood Glucose Check, Bedside [RC] QIDACANDBED Oxygen Therapy [RC] PRN VTE/DVT Education [RC] Vital Signs [RC] Q4HR Consult to Physician [CONS] Routine Acetaminophen [TylenoL] 650 mg PO Q4H PRN Acetaminophen/HYDROcodone [[place] 325-5 MG] 1 tab PO Q4H PRN HYDROmorphone [Dilaudid] 0.5 mg IVPUSH Q2H PRN Ondansetron [Zofran] 4 mg IV Q4H PRN Zolpidem [Ambien] 5 mg PO BEDTIME PRN Resuscitation Status Routine 05/05/21 21:15 Lactated Ringers [Ringers, Lactated] 1,000 ml IV ASDIRECTED 05/05/21 21:16 Cardiac Monitoring [RC] CONTINUOUS Intake and Output [RC] 04,16 Pulse Oximetry [RC] CONTINUOUS 05/05/21 21:17 Antiembolic Devices [RC] DAILY Sequential Compression Device [OM.PC] Per Unit Routine 05/05/21 21:20 Notify Provider Consults [RC] ASDIRECTED 05/06/21 07:30 Insulin Lispro [HumaLOG] See Protocol SUBCUT WITHMEALSANDBED 05/06/21 07:36 Lactated Ringers [Ringers, Lactated] 1,000 ml IV .BOLUS 05/06/21 09:00 Aspirin [Halfprin] 81 mg PO DAILY Enoxaparin [Lovenox] 30 mg SUBCUT DAILY Isosorbide Mononitrate [Imdur] 30 mg PO DAILY 05/06/21 12:00 Piperacillin/Tazobactam [Piperacil-Tazobact] 4.5 gm Sodium Chloride 0.9% [Normal Saline AdvBag] 100 ml IV Q12H 05/06/21 21:00 Simvastatin [Zocor] 40 mg PO BEDTIME 05/07/21 05:11 BASIC METABOLIC PANEL,BMP [CHEM] AM CBC WITH AUTO DIFF [HEME] AM 05/08/21 05:11 BASIC METABOLIC PANEL,BMP [CHEM] AM CBC WITH AUTO DIFF [HEME] AM 05/09/21 05:11 BASIC METABOLIC PANEL,BMP [CHEM] AM CBC WITH AUTO DIFF [HEME] AM 05/10/21 05:11 BASIC METABOLIC PANEL,BMP [CHEM] AM CBC WITH AUTO DIFF [HEME] AM - Assessment Assessment:: HD1 with perirectal abscess extending to the right gluteal muscles and hamstring - Plan Plan:: Patient has an extensive perirectal abscess likely from dehiscence of her colorectal anastomosis. My concern is that she might have a rectal cancer recurrence causing all this. Plan - she needs to be transferred to a tertiary care center but no available beds in the [facility] at this time. So we will admit for expectant care at this time. We will consult hospitalist for assistance with medical management Abscess - continue IV abx - Will continue to look for transfer opportunity unless patient gets sicker in which case we will proceed with surgery here. I spoke to daughter who is POA about this. She wants full Code at this time - May need kramer catheter to monitor UOP - continue IVF at this time - Other medical management of her CHF, CKD, DM2 - per hospitalist. Appreciate assistance
[2021-05-06] MEDS ORDERED: Heparin Sodium 5,000 Units/ML Vial SUBCUT SCH (08:45)
[2021-05-06] MEDS ORDERED: Metoprolol Tartrate 5 MG/5 ML SDV IVPUSH PRN (08:46)
--- NOTE | 2021-05-06 08:47 | PCM.CONS ---
H&P History of Present Illness - General Date of Service: 05/06/21 Admit Problem/Dx: Admission Diagnosis/Problem Admission Diagnosis/Problem Abscess of buttock Source of Information: Patient, Old Records, Provider, RN, RN Notes Reviewed History Limitations: Reports: No Limitations - History of Present Illness Initial Comments - Free Text/Narative: This is a 85-year-old female who was transferred to our facility from [place] on the evening of 05/05/2021 due to a perirectal abscess. Per report [place] had attempted to transfer the patient to multiple tertiary care centers but there were no beds available in the [facility] or region. Patient was then transferred to us. She carries a history of prior VTE, heart failure, HLD, hypertension, ulcerative colitis, arthritis, craniotomy with excision of brain neoplasm, dementia, depression, hypomagnesemia, hypothyroidism, type II DM, and rectal cancer status post LAR with diverting loop ileostomy in 2012 and subsequent reversal in 2013. CT imaging was obtained at the outside facility and shows an extensive perirectal abscess. This appears to start at her colorectal anastomoses and extends through the right gluteal muscles into the right hamstring muscles. There is also a 3.5 cm mass in the retroareolar position concerning for breast malignancy noted on CT imaging. Radiologist is recommending follow-up mammography and ultrasound. She was admitted under the surgical services and hospital medicine was consulted by Dr. Allred, general surgeon for medical management of both her chronic and acute conditions. Labs today were obtained and showed WBC of 16.61 which is an improvement on the mission from 19.93. Hemoglobin is down to 9.5 from 10.0 although patient has received multiple fluid boluses. Platelets 364,000. Neutrophils are elevated at 84.8%. Sodium is 135. Potassium 5.0. Chloride 102. Carbon oxide 22. Anion gap is 16.0. BUN is 51. Creatinine 1.8. GFR 27. Glucose is between 145 and 219. Hemoglobin A1c is 6.7. Calcium is 8.2. CRP P obtained on admission was 32.0. proBNP was elevated at at 11,413. Albumin is low at 1.6. Patient was noted to be hypotensive throughout the night and received IV fluids. Lactic acid was obtained this morning and shows a lactic acidosis of 2.1. Troponin was added onto morning labs and is elevated at 0.196 which is likely type II [place] related to stress. Patient is clearly septic and on Zosyn. Blood cultures are still pending. Plan remains to transfer patient once a bed is obtained. She was noted to have new onset atrial fibrillation with RVR on admission and was given IV push metoprolol with good response. Patient remains admitted to the floor inpatient status on telemetry. She is a full code. Her PCP is Sandra Desai PA-C in [place]. - Related Data Allergies/Adverse Reactions: Allergies Allergy/AdvReac Type Severity Reaction Status Date / Time carisoprodol [From Soma] Allergy Other Verified 05/05/21 19:11 fentanyl Allergy Other Verified 05/05/21 19:11 Sulfa (Sulfonamide Allergy Other Verified 05/05/21 19:11 Antibiotics) Home Medications: Home Meds Acetaminophen [Tylenol] 650 mg PO Q4HR PRN 05/05/21 [History] Aspirin 1 tab PO DAILY 05/05/21 [History] Carboxymethylcellulose Sodium [Refresh Plus] 1 drop EYEBOTH BID 05/05/21 [History] Cholecalciferol (Vitamin D3) [Vitamin D3] 3 cap PO DAILY 05/05/21 [History] Clopidogrel Bisulfate [Plavix] 75 mg PO DAILY 05/05/21 [History] Furosemide [Lasix] 20 mg PO ASDIRECTED 05/05/21 [History] Gabapentin [Neurontin] 300 mg PO BEDTIME 05/05/21 [History] Insulin Aspart [Novolog Flexpen] 0 units SUBCUT BIDMEALS 05/05/21 [History] Insulin Detemir [Levemir Flextouch] 20 unit SQ DAILY 05/05/21 [History] Isosorbide Mononitrate [Imdur] 30 mg PO DAILY 05/05/21 [History] Levothyroxine [Synthroid] 100 mcg PO ACBREAKFAST 05/05/21 [History] Mirtazapine [Remeron] 15 mg PO BEDTIME 05/05/21 [History] Multivitamin [Daily Liza] 1 tab PO DAILY 05/05/21 [History] Crandon-3 Fatty Acids/Fish Oil [Fish Oil 1,000 mg Capsule] 1 cap PO DAILY 05/05/21 [History] Simvastatin [Zocor] 40 mg PO BEDTIME 05/05/21 [History] Telmisartan [Micardis] 40 mg PO DAILY 05/05/21 [History] Hydrocodone/Acetaminophen [HYDROcodone-Acetaminophen 5-325 MG] 1 tab PO Q12H PRN 05/06/21 [History] Insulin Aspart [Novolog Flexpen] 9 units SQ DAILY 05/06/21 [History] Sennosides [Senna] 1 tab PO BID 05/06/21 [History] Past Medical History HEENT History: Reports: Macular Degeneration Cardiovascular History: Reports: Blood Clots/VTE/DVT, Heart Failure, High Cholesterol, Hypertension, Other (See Below) Other Cardiovascular History: orthostatic hypotension, CHF Gastrointestinal History: Reports: GERD Other Gastrointestinal History: ulcerative colitis Genitourinary History: Reports: Renal Disease Other Genitourinary History: Chronic Kidney Disease, Musculoskeletal History: Reports: Arthritis Other Musculoskeletal History: Chronic pain, Restless legs Other Neuro History: craniotomy and excision of brain neoplasm, removal of brain lesion. Psychiatric History: Reports: Dementia, Depression Endocrine/Metabolic History: Reports: Diabetes, Type II, Hypomagnesemia, Hypothyroidism, Vitamin D Deficiency, Other (See Below) Other Endocrine/Metabolic History: Vitamin B12 deficiency, Megoblastic anemia, hyperkalemia Hematologic History: Reports: Anemia, B12 Deficiency Oncologic (Cancer) History: Reports: Colon Other Oncologic History: Primary malignant neoplasm of rectum, Malignant tumor of colon. - Past Surgical History GI Surgical History: Reports: Appendectomy, Cholecystectomy, Colonoscopy, Other (See Below) Other GI Surgeries/Procedures: Jejunojejunostomy 2013 Female Surgical History: Reports: Hysterectomy Other Female Surgeries/Procedures: excision of mammary duct fistula, breast cyst removal Social & Family History - Family History Family Medical History: Unobtainable - Tobacco Use Tobacco Use Status *Q: Never Tobacco User Second Hand Smoke Exposure: No - Caffeine Use Caffeine Use: Reports: Coffee Other Caffeine Use: 2 cups/day - Recreational Drug Use Recreational Drug Use: No H&P Review of Systems - Review of Systems: Review Of Systems: See Below General: Reports: Weakness, Fatigue. Denies: Fever, Chills, Malaise HEENT: Reports: No Symptoms. Denies: Headaches, Sore Throat Pulmonary: Reports: No Symptoms. Denies: Shortness of Breath, Wheezing, Pleuritic Chest Pain, Cough, Sputum Cardiovascular: Reports: No Symptoms. Denies: Chest Pain, Palpitations, Dyspnea on Exertion, Orthopnea, Edema Gastrointestinal: Reports: Anorexia, Decreased Appetite. Denies: Abdominal Pain, Constipation, Diarrhea, Nausea, Vomiting Genitourinary: Reports: No Symptoms. Denies: Pain Musculoskeletal: Reports: Other (Buttocks pain ) Skin: Reports: No Symptoms. Denies: Cyanosis Psychiatric: Reports: No Symptoms Neurological: Reports: Confusion (baseline ), Pre-Existing Deficit (Baseline dementia), Difficulty Walking, Weakness, Gait Disturbance. Denies: Dizziness, Headache, Numbness, Tingling Hematologic/Lymphatic: Reports: No Symptoms Immunologic: Reports: No Symptoms Exam - Exam Exam: See Below - Vital Signs Vital Signs: Last Vital Signs Temp 97.9 F 05/06/21 04:56 Pulse 90 05/06/21 05:03 Resp 20 05/06/21 04:56 BP 110/47 L 05/06/21 06:14 Pulse Ox 90 L 05/06/21 04:56 Weight: 139 lb 6.4 oz - Exam Quality Assessment: Urinary Catheter, DVT Prophylaxis. No: Supplemental Oxygen General: Alert HEENT: Conjunctiva Clear, EACs Clear, Mucosa Moist & [place], Posterior Pharynx Clear Neck: Supple, Trachea Midline Lungs: Clear to Auscultation, Normal Respiratory Effort Cardiovascular: Regular Rate, Irregular Rhythm (Atrial fibrillation) GI/Abdominal Exam: Normal Bowel Sounds, Soft, Non-Tender, No Distention (Female) Exam: Deferred Rectal (Female) Exam: Deferred Back Exam: Decreased Range of Motion, Other (Right buttocks pain with induration. Patient reports pain extends down right leg. Pain with movement.) Extremities: Normal Inspection, No Pedal Edema, Leg Pain (right ), Limited Range of Motion (2/2 pain ) Skin: Warm, Dry, Intact Neurological: Cranial Nerves Intact (Grossly ) Neuro Extensive - Mental Status: Alert, Normal Mood/Affect - Patient Data Lab Results Last 24 hrs: Laboratory Results - last 24 hr 05/05/21 05/05/21 05/05/21 Range/Units 19:20 19:20 19:20 WBC 19.93 H (3.98-10.04) K/mm3 RBC 3.56 L (3.98-5.22) M/mm3 Hgb 10.0 L (11.2-15.7) gm/dl Hct 31.9 L (34.1-44.9) % MCV 89.6 (79.4-94.8) fl MCH 28.1 (25.6-32.2) pg MCHC 31.3 L (32.2-35.5) g/dl RDW Std Deviation 50.3 H (36.4-46.3) fL Plt Count 398 H (182-369) K/mm3 MPV 9.0 L (9.4-12.3) fl Neut % (Auto) 85.7 H (34.0-71.1) % Lymph % (Auto) 6.0 L (19.3-51.7) % Waller % (Auto) 7.6 (4.7-12.5) % Eos % (Auto) 0.1 L (0.7-5.8) Baso % (Auto) 0.1 (0.1-1.2) % Neut # (Auto) 17.09 H (1.56-6.13) K/mm3 Lymph # (Auto) 1.20 (1.18-3.74) K/mm3 Waller # (Auto) 1.52 H (0.24-0.36) K/mm3 Eos # (Auto) 0.01 L (0.04-0.36) K/mm3 Baso # (Auto) 0.01 (0.01-0.08) K/mm3 Manual Slide Review Abnormal smear PT 12.5 H (9.7-12.0) SECONDS INR 1.13 APTT 28.7 (21.7-31.4) SECONDS Sodium 132 L (136-145) mEq/L Potassium 5.1 (3.5-5.1) mEq/L Chloride 96 L (98-107) mEq/L Carbon Dioxide 22 (21-32) mEq/L Anion Gap 19.1 H (5-15) BUN 46 H (7-18) mg/dL Creatinine 1.6 H (0.55-1.02) mg/dL Est Cr Clr Drug Dosing 17.79 mL/min Estimated GFR (MDRD) 30 (>60) mL/min BUN/Creatinine Ratio 28.8 H (14-18) Glucose 219 H (70-99) mg/dL POC Glucose (70-99) mg/dL Hemoglobin A1c ( - 5.6) % Calcium 8.2 L (8.5-10.1) mg/dL Magnesium (1.8-2.4) mg/dL Total Bilirubin 0.3 (0.2-1.0) mg/dL AST 38 H (15-37) U/L ALT 22 (14-59) U/L Alkaline Phosphatase 165 H (46-116) U/L C-Reactive Protein 32.0 H* (<1.0) mg/dL NT-Pro-B Natriuret Pep (0-450) pg/mL Total Protein 6.5 (6.4-8.2) g/dl Albumin 1.6 L (3.4-5.0) g/dl Globulin 4.9 gm/dL Albumin/Globulin Ratio 0.3 L (1-2) Influenza Type A RNA (NEGATIVE) Influenza Type B RNA (NEGATIVE) SARS-CoV-2 RNA (MADDY) (NEGATIVE) MRSA (PCR) 05/05/21 05/05/21 05/05/21 Range/Units 19:20 19:20 19:20 WBC (3.98-10.04) K/mm3 RBC (3.98-5.22) M/mm3 Hgb (11.2-15.7) gm/dl Hct (34.1-44.9) % MCV (79.4-94.8) fl MCH (25.6-32.2) pg MCHC (32.2-35.5) g/dl RDW Std Deviation (36.4-46.3) fL Plt Count (182-369) K/mm3 MPV (9.4-12.3) fl Neut % (Auto) (34.0-71.1) % Lymph % (Auto) (19.3-51.7) % Waller % (Auto) (4.7-12.5) % Eos % (Auto) (0.7-5.8) Baso % (Auto) (0.1-1.2) % Neut # (Auto) (1.56-6.13) K/mm3 Lymph # (Auto) (1.18-3.74) K/mm3 Waller # (Auto) (0.24-0.36) K/mm3 Eos # (Auto) (0.04-0.36) K/mm3 Baso # (Auto) (0.01-0.08) K/mm3 Manual Slide Review PT (9.7-12.0) SECONDS INR APTT (21.7-31.4) SECONDS Sodium (136-145) mEq/L Potassium (3.5-5.1) mEq/L Chloride (98-107) mEq/L Carbon Dioxide (21-32) mEq/L Anion Gap (5-15) BUN (7-18) mg/dL Creatinine (0.55-1.02) mg/dL Est Cr Clr Drug Dosing mL/min Estimated GFR (MDRD) (>60) mL/min BUN/Creatinine Ratio (14-18) Glucose (70-99) mg/dL POC Glucose (70-99) mg/dL Hemoglobin A1c 6.7 H ( - 5.6) % Calcium (8.5-10.1) mg/dL Magnesium 2.0 (1.8-2.4) mg/dL Total Bilirubin (0.2-1.0) mg/dL AST (15-37) U/L ALT (14-59) U/L Alkaline Phosphatase (46-116) U/L C-Reactive Protein (<1.0) mg/dL NT-Pro-B Natriuret Pep 39454 H (0-450) pg/mL Total Protein (6.4-8.2) g/dl Albumin (3.4-5.0) g/dl Globulin gm/dL Albumin/Globulin Ratio (1-2) Influenza Type A RNA (NEGATIVE) Influenza Type B RNA (NEGATIVE) SARS-CoV-2 RNA (MADDY) (NEGATIVE) MRSA (PCR) 05/05/21 05/05/21 05/06/21 Range/Units 19:49 20:16 02:11 WBC (3.98-10.04) K/mm3 RBC (3.98-5.22) M/mm3 Hgb (11.2-15.7) gm/dl Hct (34.1-44.9) % MCV (79.4-94.8) fl MCH (25.6-32.2) pg MCHC (32.2-35.5) g/dl RDW Std Deviation (36.4-46.3) fL Plt Count (182-369) K/mm3 MPV (9.4-12.3) fl Neut % (Auto) (34.0-71.1) % Lymph % (Auto) (19.3-51.7) % Waller % (Auto) (4.7-12.5) % Eos % (Auto) (0.7-5.8) Baso % (Auto) (0.1-1.2) % Neut # (Auto) (1.56-6.13) K/mm3 Lymph # (Auto) (1.18-3.74) K/mm3 Waller # (Auto) (0.24-0.36) K/mm3 Eos # (Auto) (0.04-0.36) K/mm3 Baso # (Auto) (0.01-0.08) K/mm3 Manual Slide Review PT (9.7-12.0) SECONDS INR APTT (21.7-31.4) SECONDS Sodium (136-145) mEq/L Potassium (3.5-5.1) mEq/L Chloride (98-107) mEq/L Carbon Dioxide (21-32) mEq/L Anion Gap (5-15) BUN (7-18) mg/dL Creatinine (0.55-1.02) mg/dL Est Cr Clr Drug Dosing mL/min Estimated GFR (MDRD) (>60) mL/min BUN/Creatinine Ratio (14-18) Glucose (70-99) mg/dL POC Glucose 196 H (70-99) mg/dL Hemoglobin A1c ( - 5.6) % Calcium (8.5-10.1) mg/dL Magnesium (1.8-2.4) mg/dL Total Bilirubin (0.2-1.0) mg/dL AST (15-37) U/L ALT (14-59) U/L Alkaline Phosphatase (46-116) U/L C-Reactive Protein (<1.0) mg/dL NT-Pro-B Natriuret Pep (0-450) pg/mL Total Protein (6.4-8.2) g/dl Albumin (3.4-5.0) g/dl Globulin gm/dL Albumin/Globulin Ratio (1-2) Influenza Type A RNA Negative (NEGATIVE) Influenza Type B RNA Negative (NEGATIVE) SARS-CoV-2 RNA (MADDY) Negative (NEGATIVE) MRSA (PCR) Negative 05/06/21 05/06/21 05/06/21 Range/Units 05:28 05:28 06:07 WBC 16.61 H (3.98-10.04) K/mm3 RBC 3.46 L (3.98-5.22) M/mm3 Hgb 9.5 L (11.2-15.7) gm/dl Hct 30.7 L (34.1-44.9) % MCV 88.7 (79.4-94.8) fl MCH 27.5 (25.6-32.2) pg MCHC 30.9 L (32.2-35.5) g/dl RDW Std Deviation 50.3 H (36.4-46.3) fL Plt Count 364 (182-369) K/mm3 MPV 9.0 L (9.4-12.3) fl Neut % (Auto) 84.8 H (34.0-71.1) % Lymph % (Auto) 7.7 L (19.3-51.7) % [place] % (Auto) 6.9 (4.7-12.5) % Eos % (Auto) 0 L (0.7-5.8) Baso % (Auto) 0.1 (0.1-1.2) % Neut # (Auto) 14.09 H (1.56-6.13) K/mm3 Lymph # (Auto) 1.28 (1.18-3.74) K/mm3 [place] # (Auto) 1.14 H (0.24-0.36) K/mm3 Eos # (Auto) 0.00 L (0.04-0.36) K/mm3 Baso # (Auto) 0.01 (0.01-0.08) K/mm3 Manual Slide Review PT (9.7-12.0) SECONDS INR APTT (21.7-31.4) SECONDS Sodium 135 L (136-145) mEq/L Potassium 5.0 (3.5-5.1) mEq/L Chloride 102 (98-107) mEq/L Carbon Dioxide 22 (21-32) mEq/L Anion Gap 16.0 H (5-15) BUN 51 H (7-18) mg/dL Creatinine 1.8 H (0.55-1.02) mg/dL Est Cr Clr Drug Dosing 15.82 mL/min Estimated GFR (MDRD) 27 (>60) mL/min BUN/Creatinine Ratio 28.3 H (14-18) Glucose 193 H (70-99) mg/dL POC Glucose 189 H (70-99) mg/dL Hemoglobin A1c ( - 5.6) % Calcium 8.2 L (8.5-10.1) mg/dL Magnesium (1.8-2.4) mg/dL Total Bilirubin (0.2-1.0) mg/dL AST (15-37) U/L ALT (14-59) U/L Alkaline Phosphatase (46-116) U/L C-Reactive Protein (<1.0) mg/dL NT-Pro-B Natriuret Pep (0-450) pg/mL Total Protein (6.4-8.2) g/dl Albumin (3.4-5.0) g/dl Globulin gm/dL Albumin/Globulin Ratio (1-2) Influenza Type A RNA (NEGATIVE) Influenza Type B RNA (NEGATIVE) SARS-CoV-2 RNA (MADDY) (NEGATIVE) MRSA (PCR) Result Diagrams: 05/06/21 05:28 05/06/21 05:28 Sepsis Event Note - Evaluation Sepsis Screening Result: Severe Sepsis Risk - Focused Exam Vital Signs: Vital Signs Temp Temp Pulse Pulse Resp BP BP 05/06/21 06:14 110/47 L 05/06/21 06:11 84/48 L 05/06/21 05:03 90 82/40 L 05/06/21 04:56 97.9 F 96 20 81/33 L 05/06/21 01:40 98.2 F 112 H 18 90/65 05/06/21 00:13 120/87 05/05/21 23:50 135 H 90/40 L 05/05/21 23:27 75/40 L 05/05/21 22:58 82/35 L 05/05/21 22:46 77/46 L 05/05/21 22:15 99.3 F 127 H 16 84/50 L 05/05/21 22:00 97.8 F 135 H 20 118/65 05/05/21 21:16 Pulse Ox 05/06/21 06:14 05/06/21 06:11 05/06/21 05:03 05/06/21 04:56 90 L 05/06/21 01:40 93 L 05/06/21 00:13 05/05/21 23:50 05/05/21 23:27 05/05/21 22:58 05/05/21 22:46 05/05/21 22:15 92 L 05/05/21 22:00 94 L 05/05/21 21:16 94 L Consult PN Assessment/Plan (1) Perirectal abscess SNOMED Code(s): 59012699 Code(s): K61.1 - RECTAL ABSCESS Priority: High Current Visit: Yes (2) Severe sepsis SNOMED Code(s): 29744808 Code(s): A41.9 - SEPSIS, UNSPECIFIED ORGANISM; R65.20 - SEVERE SEPSIS WITHOUT SEPTIC SHOCK Priority: High Current Visit: Yes (3) Hypotension SNOMED Code(s): 69920546 Code(s): I95.9 - HYPOTENSION, UNSPECIFIED Priority: High Current Visit: Yes Qualifiers: Hypotension type: unspecified hypotension type Qualified Code(s): I95.9 - Hypotension, unspecified (4) Type 2 myocardial infarction SNOMED Code(s): 59254947 Code(s): I21.A1 - MYOCARDIAL INFARCTION TYPE 2 Priority: High Current Visit: Yes (5) New onset a-fib SNOMED Code(s): 27673728 Code(s): I48.91 - UNSPECIFIED ATRIAL FIBRILLATION Priority: High Current Visit: Yes (6) Type II diabetes mellitus SNOMED Code(s): 06580218 Code(s): E11.9 - TYPE 2 DIABETES MELLITUS WITHOUT COMPLICATIONS Priority: Medium Current Visit: Yes Qualifiers: Diabetes mellitus long distance operator insulin use: with care home use Diabetes mellitus complication status: with other specified complication Qualified Code(s): E11.69 - Type 2 diabetes mellitus with other specified complication; Z79.4 - senior care (current) use of insulin (7) History of venous thromboembolism SNOMED Code(s): 481131395 Code(s): Z86.718 - PERSONAL HISTORY OF OTHER VENOUS THROMBOSIS AND EMBOLISM Priority: Medium Current Visit: Yes (8) Heart failure SNOMED Code(s): 02850429 Code(s): I50.9 - HEART FAILURE, UNSPECIFIED Priority: High Current Visit: Yes Qualifiers: Heart failure type: unspecified Heart failure chronicity: unspecified Q ualified Code(s): I50.9 - Heart failure, unspecified (9) Elevated troponin I level SNOMED Code(s): 217527701 Code(s): R77.8 - OTHER SPECIFIED ABNORMALITIES OF PLASMA PROTEINS Priority: High Current Visit: Yes (10) Elevated brain natriuretic peptide (BNP) level SNOMED Code(s): 980124689, 459283147 Code(s): R79.89 - OTHER SPECIFIED ABNORMAL FINDINGS OF BLOOD CHEMISTRY Priority: High Current Visit: Yes (11) Ulcerative colitis SNOMED Code(s): 77628442 Code(s): K51.90 - ULCERATIVE COLITIS, UNSPECIFIED, WITHOUT COMPLICATIONS Priority: High Current Visit: Yes Qualifiers: Ulcerative colitis location: unspecified ulcerative colitis location Digestive disease complication type: unspecified complication Qualified Code(s): K51.919 - Ulcerative colitis, unspecified with unspecified complications (12) Arthritis SNOMED Code(s): 0275353 Code(s): M19.90 - UNSPECIFIED OSTEOARTHRITIS, UNSPECIFIED SITE Priority: Low Current Visit: No (13) History of brain tumor SNOMED Code(s): 798946707, 449222840, 279401984 Code(s): Z87.898 - PERSONAL HISTORY OF OTHER SPECIFIED CONDITIONS Priority: Low Current Visit: No (14) History of craniotomy SNOMED Code(s): 243271567, 661900633 Code(s): Z98.890 - OTHER SPECIFIED POSTPROCEDURAL STATES Priority: Low Current Visit: No (15) Dementia SNOMED Code(s): 78427217 Code(s): F03.90 - UNSPECIFIED DEMENTIA WITHOUT BEHAVIORAL DISTURBANCE Priority: Low Current Visit: No Qualifiers: Dementia type: unspecified type Dementia behavioral disturbance: without behavioral disturbance Qualified Code(s): F03.90 - Unspecified dementia without behavioral disturbance (16) Hypomagnesemia SNOMED Code(s): 619845840 Code(s): E83.42 - HYPOMAGNESEMIA Priority: Low Current Visit: No (17) Hypothyroidism SNOMED Code(s): 47887533 Code(s): E03.9 - HYPOTHYROIDISM, UNSPECIFIED Priority: Low Current Visit: Yes Qualifiers: Hypothyroidism type: unspecified Qualified Code(s): E03.9 - Hypothyroidism, unspecified (18) Lactic acidosis SNOMED Code(s): 17460544 Code(s): E87.2 - ACIDOSIS Priority: High Current Visit: Yes (19) Renal failure SNOMED Code(s): 27422952 Code(s): N19 - UNSPECIFIED KIDNEY FAILURE Priority: High Current Visit: Yes Qualifiers: Renal failure chronicity: unspecified chronicity Qualified Code(s): N19 - Unspecified kidney failure (20) History of rectal cancer SNOMED Code(s): 357185382 Code(s): Z85.048 - PRSNL HX OF MALIG NEOPLM OF RECTUM, RECTOSIG JUNCT, AND ANUS Priority: Low Current Visit: No (21) History of reversal of ileostomy SNOMED Code(s): 22277974014500384 Code(s): Z98.890 - OTHER SPECIFIED POSTPROCEDURAL STATES Priority: Low Current Visit: No (22) History of low anterior resection of rectum SNOMED Code(s): 193908664 Code(s): Z90.49 - ACQUIRED ABSENCE OF OTHER SPECIFIED PARTS OF DIGESTIVE TRACT Priority: Low Current Visit: No (23) Childs catheter in place SNOMED Code(s): 871679788 Code(s): Z97.8 - PRESENCE OF OTHER SPECIFIED DEVICES Priority: High Current Visit: Yes (24) Abnormal CT scan, chest SNOMED Code(s): 41919793197121727 Code(s): R93.89 - ABNORMAL FINDINGS ON DX IMAGING OF OTH BODY STRUCTURES Priority: Medium Current Visit: Yes (25) Atrial fibrillation with RVR SNOMED Code(s): 038008788923176 Code(s): I48.91 - UNSPECIFIED ATRIAL FIBRILLATION Priority: High Current Visit: Yes Problem List Initiated/Reviewed/Updated: Yes My Orders Last 24 Hours: My Active Orders 05/06/21 07:59 LACTIC ACID SEPSIS W/ REFLEX [LACTATE SEPSIS W/ REFLEX] [CHEM] Routine 05/06/21 08:44 Blood Glucose Check, Bedside [RC] Q6H 05/06/21 08:45 Heparin Sodium 5,000 units SUBCUT Q8H 05/06/21 08:46 Metoprolol Tartrate [Lopressor] 2.5 mg IVPUSH Q4H PRN 05/06/21 09:00 Insulin Glargine,Hum.Rec.Anlog [Semglee Pen] 15 unit SUBCUT DAILY Levothyroxine [Synthroid] 100 mcg PO ACBREAKFAST Plan: Perirectal abscess History of rectal cancer History of reversal of ileostomy History of low anterior resection of rectum * Management per primary team * Continue Zosyn * Transfer once bed is found at tertiary care center * NPO * Bedrest Severe sepsis Lactic acidosis Hypotension * IV fluids as ordered * Monitor vital signs * Repeat lactic acid Q3hr per protocol until normalized * IV fluids as above * Monitor need for pressors * Telemetry * Blood cultures pending Renal failure Childs catheter in place * Unsure if acute or chronic renal failure * IV fluids as ordered * Avoid nephrotoxic medications if possible * Monitor labs * Hold home ARB for now * Continue Childs catheter for now Type 2 myocardial infarction New onset a-fib A-fib with RVR, Resolved Heart failure Elevated troponin I level Elevated brain natriuretic peptide (BNP) level * Repeat troponin every 6 hours as ordered * Check CK-MB * Telemetry * 2.5 mg IV push metoprolol for tachycardia * Caution due to sepsis/hypotension as above * Hold home Lasix for now * Continue daily aspirin * Continue home Zocor * Diuresis when appropriate * Echocardiogram ordered * Hold home Imdur for now due to hypotension/sepsis as above Type II diabetes mellitus (A1C 6.7%) * Every 6 hours blood glucose checks while n.p.o. * Sliding scale insulin as ordered * Decrease long-acting insulin to 15 units daily * Diabetic diet once no longer n.p.o. History of venous thromboembolism * Heparin subcutaneous for VTE prophylaxis * SCDs per primary team Ulcerative colitis * No acute concerns * Monitor Arthritis * No acute concerns * Consider PT when appropriate History of brain tumor History of craniotomy * No acute concerns Dementia * Hold home Remeron for now * Let patient sleep protocol Hypomagnesemia * No acute concerns * Monitor labs Hypothyroidism * Continue home levothyroxine * Check TSH Abnormal CT scan, chest * 3.5cm retroareolar mass noted on CT * Recommend outpatient mammogram and US * PCP follow-up Code status: Full code PCP: Sandra Desai PA-C DVT prophylaxis: Heparin/SCDs Disposition: Patient admitted to the floor on telemetry on telemetry pending transfer to tertiary care center. General surgery remains primary team with hospitalist consult for management of chronic conditions and type II [place]. Requesting Provider: Dr. Allred Date Consult Requested: 05/06/21 Patient History Reviewed: Yes Admission H&P Reviewed: Yes Notified Requestor: Yes Time Spent (in minutes): 60
[2021-05-06] MEDS ORDERED: Aspirin 81 MG Tab.EC PO SCH (09:00)
[2021-05-06] MEDS ORDERED: Levothyroxine 100 MCG Tab PO SCH (09:00)
[2021-05-06] MEDS ORDERED: Insulin Glargine,Hum.Rec.Anlog 100 UNIT/ML 3 ML Pen SUBCUT SCH (09:00)
[2021-05-06] MEDS ORDERED: Carboxymethylcellulose Sodium 1% Ophth Gel 15 ML Bottle EYEBOTH SCH (09:00)
[2021-05-06] MEDS ORDERED: Enoxaparin 40 MG/0.4 ML Syringe SUBCUT SCH (09:00)
[2021-05-06] MEDS ORDERED: Enoxaparin 30 MG/0.3 ML Syringe SUBCUT SCH (09:00)
[2021-05-06] MEDS ORDERED: Isosorbide Mononitrate 30 MG Tab.ER PO SCH (09:00)
[2021-05-06] MEDS ORDERED: Piperacillin/Tazobactam 4.5 GM in Sodium Chloride 0.9% 100 ML IV ONE (09:00)
[2021-05-06] MEDS: Lactated Ringers 1,000 ML IV SCH ×2 (09:16→15:11)
--- NOTE | 2021-05-06 09:16 | CR ---
EXAM: XR CHEST 1 VIEW LOCATION: [facility] [employer] DATE/TIME: 05/05/2021 7:02 PM INDICATION: Pre op COMPARISON: None. IMPRESSION: Elevated right hemidiaphragm. The left costophrenic angle was excluded from the image. No focal consolidation. The cardiac silhouette is at the upper limits of normal for size. The pulmonary vasculature is unremarkable. SIGNED BY: Steve Crane MD 05/05/2021 8:22 PM [facility]
[2021-05-06] MEDS ORDERED: Lactated Ringers 500 ML IV ONE (09:39)
[2021-05-06] MEDS ORDERED: Piperacillin/Tazobactam 4.5 GM in Sodium Chloride 0.9% 100 ML IV SCH ×2 (12:00→21:00)
--- NOTE | 2021-05-06 17:21 | PCM.DCSUM1 ---
Discharge Summary - Hospital Course Free Text/Narrative:: Patient is an 85 yo female with history of rectal cancer s/p LAR in 2012 who was transferred to [facility] from [facility] for rectal abscess. The patient presented in Afib and upon review of imaging, she has an extensive perirectal abscess extending through the right gluteus muscle to the right hamstring. She was also found to have CHF, CKD, DM, Depression, Hypothyroidism. SHe was on ASA and Plavix. Due to her extensive disease and significant comorbidities, a determination was made to transfer the patient to a higher level of care that can meet her needs which include surgery, infectious disease, cardiology, hospitalist and ICU management. This plan was approved by her POA. Patient required close monitoring and management of her blood pressure and Afib during her stay at the hospital prior to transfer. Diagnosis: Stroke: No - Discharge Data Discharge Date: 05/06/21 Discharge Disposition: DC/Tfer to Acute Hospital 02 Condition: Good - Referral to Home Health Primary Care Physician: Sandra Desai [employer]INE[employer] - Patient Summary/Data Consults: Consultations 05/05/21 21:14 Consult to Physician [CONS] Routine - Patient Instructions Diet: NPO Driving: Do Not Drive - Discharge Plan *PRESCRIPTION DRUG MONITORING PROGRAM REVIEWED*: Not Applicable *COPY OF PRESCRIPTION DRUG MONITORING REPORT IN PATIENT HERMILA: Not Applicable Home Medications: Home Meds Aspirin 1 tab PO DAILY 05/05/21 [History] Carboxymethylcellulose Sodium [Refresh Plus] 1 drop EYEBOTH BID 05/05/21 [History] Cholecalciferol (Vitamin D3) [Vitamin D3] 3 cap PO DAILY 05/05/21 [History] Clopidogrel Bisulfate [Plavix] 75 mg PO DAILY 05/05/21 [History] Furosemide [Lasix] 20 mg PO ASDIRECTED 05/05/21 [History] Gabapentin [Neurontin] 300 mg PO BEDTIME 05/05/21 [History] Insulin Detemir [Levemir Flextouch] 10 unit SQ DAILY 05/05/21 [History] Isosorbide Mononitrate [Imdur] 30 mg PO DAILY 05/05/21 [History] Levothyroxine [Synthroid] 100 mcg PO ACBREAKFAST 05/05/21 [History] Mirtazapine [Remeron] 15 mg PO BEDTIME 05/05/21 [History] Carboxymethylcellulose Sodium [Refresh Plus] 1 drop EYEBOTH Q4H PRN 05/06/21 [History] Hydrocodone/Acetaminophen [HYDROcodone-Acetaminophen 10-325 MG] 1 tab PO BID 05/06/21 [History] Hydrocodone/Acetaminophen [HYDROcodone-Acetaminophen 5-325 MG] 1 tab PO Q4H PRN 05/06/21 [History] cefTRIAXone Sodium [Ceftriaxone] 2 gm IV DAILY 05/06/21 [History] Oxygen Therapy Mode: Room Air Forms: ED Department Discharge Referrals: Sandra Desai NP [Primary Care Provider] - - Discharge Summary/Plan Comment DC Time >30 min.: Yes Total # of Minutes for Discharge Time: 31 - General Info Date of Service: 05/06/21 Admission Dx/Problem (Free Text: Admission Diagnosis/Problem Admission Diagnosis/Problem Abscess of buttock Subjective Update: Afib is now resolved. She does have occational PACs. Otherwise she does not have much complaints this AM. Functional Status: Reports: Pain Controlled - Review of Systems General: Reports: No Symptoms HEENT: Reports: No Symptoms Pulmonary: Reports: No Symptoms Cardiovascular: Reports: No Symptoms Gastrointestinal: Reports: No Symptoms Musculoskeletal: Reports: Other (right buttock and posterior thigh pain) - Patient Data Vitals - Most Recent: Last Vital Signs Temp 98.1 F 05/06/21 17:01 Pulse 78 05/06/21 17:01 Resp 18 05/06/21 17:01 BP 112/55 L 05/06/21 17:01 Pulse Ox 90 L 05/06/21 14:39 Weight - Most Recent: 63.231 kg I&O - Last 24 hours: Intake & Output 05/06/21 05/06/21 05/06/21 06:59 14:59 22:59 Intake Total 554 2900 Output Total 300 Balance 554 2600 Lab Results - Last 24 hrs: Laboratory Results - last 24 hr 05/05/21 05/05/21 05/05/21 Range/Units 19:20 19:20 19:20 WBC 19.93 H (3.98-10.04) K/mm3 RBC 3.56 L (3.98-5.22) M/mm3 Hgb 10.0 L (11.2-15.7) gm/dl Hct 31.9 L (34.1-44.9) % MCV 89.6 (79.4-94.8) fl MCH 28.1 (25.6-32.2) pg MCHC 31.3 L (32.2-35.5) g/dl RDW Std Deviation 50.3 H (36.4-46.3) fL Plt Count 398 H (182-369) K/mm3 MPV 9.0 L (9.4-12.3) fl Neut % (Auto) 85.7 H (34.0-71.1) % Lymph % (Auto) 6.0 L (19.3-51.7) % Bent % (Auto) 7.6 (4.7-12.5) % Eos % (Auto) 0.1 L (0.7-5.8) Baso % (Auto) 0.1 (0.1-1.2) % Neut # (Auto) 17.09 H (1.56-6.13) K/mm3 Lymph # (Auto) 1.20 (1.18-3.74) K/mm3 Bent # (Auto) 1.52 H (0.24-0.36) K/mm3 Eos # (Auto) 0.01 L (0.04-0.36) K/mm3 Baso # (Auto) 0.01 (0.01-0.08) K/mm3 Manual Slide Review Abnormal smear PT 12.5 H (9.7-12.0) SECONDS INR 1.13 APTT 28.7 (21.7-31.4) SECONDS Sodium 132 L (136-145) mEq/L Potassium 5.1 (3.5-5.1) mEq/L Chloride 96 L (98-107) mEq/L Carbon Dioxide 22 (21-32) mEq/L Anion Gap 19.1 H (5-15) BUN 46 H (7-18) mg/dL Creatinine 1.6 H (0.55-1.02) mg/dL Est Cr Clr Drug Dosing 17.79 mL/min Estimated GFR (MDRD) 30 (>60) mL/min BUN/Creatinine Ratio 28.8 H (14-18) Glucose 219 H (70-99) mg/dL POC Glucose (70-99) mg/dL Hemoglobin A1c ( - 5.6) % Lactic Acid (0.4-2.0) mmol/L Calcium 8.2 L (8.5-10.1) mg/dL Magnesium (1.8-2.4) mg/dL Total Bilirubin 0.3 (0.2-1.0) mg/dL AST 38 H (15-37) U/L ALT 22 (14-59) U/L Alkaline Phosphatase 165 H (46-116) U/L CK-MB (CK-2) (0-3.6) ng/ml Troponin I (0.00-0.056) ng/mL C-Reactive Protein 32.0 H* (<1.0) mg/dL NT-Pro-B Natriuret Pep (0-450) pg/mL Total Protein 6.5 (6.4-8.2) g/dl Albumin 1.6 L (3.4-5.0) g/dl Globulin 4.9 gm/dL Albumin/Globulin Ratio 0.3 L (1-2) TSH 3rd Generation (0.358-3.74) uIU/mL Influenza Type A RNA (NEGATIVE) Influenza Type B RNA (NEGATIVE) SARS-CoV-2 RNA (MADDY) (NEGATIVE) MRSA (PCR) 05/05/21 05/05/21 05/05/21 Range/Units 19:20 19:20 19:20 WBC (3.98-10.04) K/mm3 RBC (3.98-5.22) M/mm3 Hgb (11.2-15.7) gm/dl Hct (34.1-44.9) % MCV (79.4-94.8) fl MCH (25.6-32.2) pg MCHC (32.2-35.5) g/dl RDW Std Deviation (36.4-46.3) fL Plt Count (182-369) K/mm3 MPV (9.4-12.3) fl Neut % (Auto) (34.0-71.1) % Lymph % (Auto) (19.3-51.7) % Bent % (Auto) (4.7-12.5) % Eos % (Auto) (0.7-5.8) Baso % (Auto) (0.1-1.2) % Neut # (Auto) (1.56-6.13) K/mm3 Lymph # (Auto) (1.18-3.74) K/mm3 Bent # (Auto) (0.24-0.36) K/mm3 Eos # (Auto) (0.04-0.36) K/mm3 Baso # (Auto) (0.01-0.08) K/mm3 Manual Slide Review PT (9.7-12.0) SECONDS INR APTT (21.7-31.4) SECONDS Sodium (136-145) mEq/L Potassium (3.5-5.1) mEq/L Chloride (98-107) mEq/L Carbon Dioxide (21-32) mEq/L Anion Gap (5-15) BUN (7-18) mg/dL Creatinine (0.55-1.02) mg/dL Est Cr Clr Drug Dosing mL/min Estimated GFR (MDRD) (>60) mL/min BUN/Creatinine Ratio (14-18) Glucose (70-99) mg/dL POC Glucose (70-99) mg/dL Hemoglobin A1c 6.7 H ( - 5.6) % Lactic Acid (0.4-2.0) mmol/L Calcium (8.5-10.1) mg/dL Magnesium 2.0 (1.8-2.4) mg/dL Total Bilirubin (0.2-1.0) mg/dL AST (15-37) U/L ALT (14-59) U/L Alkaline Phosphatase (46-116) U/L CK-MB (CK-2) (0-3.6) ng/ml Troponin I (0.00-0.056) ng/mL C-Reactive Protein (<1.0) mg/dL NT-Pro-B Natriuret Pep 45829 H (0-450) pg/mL Total Protein (6.4-8.2) g/dl Albumin (3.4-5.0) g/dl Globulin gm/dL Albumin/Globulin Ratio (1-2) TSH 3rd Generation (0.358-3.74) uIU/mL Influenza Type A RNA (NEGATIVE) Influenza Type B RNA (NEGATIVE) SARS-CoV-2 RNA (MADDY) (NEGATIVE) MRSA (PCR) 05/05/21 05/05/21 05/06/21 Range/Units 19:49 20:16 02:11 WBC (3.98-10.04) K/mm3 RBC (3.98-5.22) M/mm3 Hgb (11.2-15.7) gm/dl Hct (34.1-44.9) % MCV (79.4-94.8) fl MCH (25.6-32.2) pg MCHC (32.2-35.5) g/dl RDW Std Deviation (36.4-46.3) fL Plt Count (182-369) K/mm3 MPV (9.4-12.3) fl Neut % (Auto) (34.0-71.1) % Lymph % (Auto) (19.3-51.7) % Bent % (Auto) (4.7-12.5) % Eos % (Auto) (0.7-5.8) Baso % (Auto) (0.1-1.2) % Neut # (Auto) (1.56-6.13) K/mm3 Lymph # (Auto) (1.18-3.74) K/mm3 Bent # (Auto) (0.24-0.36) K/mm3 Eos # (Auto) (0.04-0.36) K/mm3 Baso # (Auto) (0.01-0.08) K/mm3 Manual Slide Review PT (9.7-12.0) SECONDS INR APTT (21.7-31.4) SECONDS Sodium (136-145) mEq/L Potassium (3.5-5.1) mEq/L Chloride (98-107) mEq/L Carbon Dioxide (21-32) mEq/L Anion Gap (5-15) BUN (7-18) mg/dL Creatinine (0.55-1.02) mg/dL Est Cr Clr Drug Dosing mL/min Estimated GFR (MDRD) (>60) mL/min BUN/Creatinine Ratio (14-18) Glucose (70-99) mg/dL POC Glucose 196 H (70-99) mg/dL Hemoglobin A1c ( - 5.6) % Lactic Acid (0.4-2.0) mmol/L Calcium (8.5-10.1) mg/dL Magnesium (1.8-2.4) mg/dL Total Bilirubin (0.2-1.0) mg/dL AST (15-37) U/L ALT (14-59) U/L Alkaline Phosphatase (46-116) U/L CK-MB (CK-2) (0-3.6) ng/ml Troponin I (0.00-0.056) ng/mL C-Reactive Protein (<1.0) mg/dL NT-Pro-B Natriuret Pep (0-450) pg/mL Total Protein (6.4-8.2) g/dl Albumin (3.4-5.0) g/dl Globulin gm/dL Albumin/Globulin Ratio (1-2) TSH 3rd Generation (0.358-3.74) uIU/mL Influenza Type A RNA Negative (NEGATIVE) Influenza Type B RNA Negative (NEGATIVE) SARS-CoV-2 RNA (MADDY) Negative (NEGATIVE) MRSA (PCR) Negative 05/06/21 05/06/21 05/06/21 Range/Units 05:28 05:28 05:28 WBC 16.61 H (3.98-10.04) K/mm3 RBC 3.46 L (3.98-5.22) M/mm3 Hgb 9.5 L (11.2-15.7) gm/dl Hct 30.7 L (34.1-44.9) % MCV 88.7 (79.4-94.8) fl MCH 27.5 (25.6-32.2) pg MCHC 30.9 L (32.2-35.5) g/dl RDW Std Deviation 50.3 H (36.4-46.3) fL Plt Count 364 (182-369) K/mm3 MPV 9.0 L (9.4-12.3) fl Neut % (Auto) 84.8 H (34.0-71.1) % Lymph % (Auto) 7.7 L (19.3-51.7) % Bent % (Auto) 6.9 (4.7-12.5) % Eos % (Auto) 0 L (0.7-5.8) Baso % (Auto) 0.1 (0.1-1.2) % Neut # (Auto) 14.09 H (1.56-6.13) K/mm3 Lymph # (Auto) 1.28 (1.18-3.74) K/mm3 Bent # (Auto) 1.14 H (0.24-0.36) K/mm3 Eos # (Auto) 0.00 L (0.04-0.36) K/mm3 Baso # (Auto) 0.01 (0.01-0.08) K/mm3 Manual Slide Review PT (9.7-12.0) SECONDS INR APTT (21.7-31.4) SECONDS Sodium 135 L (136-145) mEq/L Potassium 5.0 (3.5-5.1) mEq/L Chloride 102 (98-107) mEq/L Carbon Dioxide 22 (21-32) mEq/L Anion Gap 16.0 H (5-15) BUN 51 H (7-18) mg/dL Creatinine 1.8 H (0.55-1.02) mg/dL Est Cr Clr Drug Dosing 15.82 mL/min Estimated GFR (MDRD) 27 (>60) mL/min BUN/Creatinine Ratio 28.3 H (14-18) Glucose 193 H (70-99) mg/dL POC Glucose (70-99) mg/dL Hemoglobin A1c ( - 5.6) % Lactic Acid (0.4-2.0) mmol/L Calcium 8.2 L (8.5-10.1) mg/dL Magnesium (1.8-2.4) mg/dL Total Bilirubin (0.2-1.0) mg/dL AST (15-37) U/L ALT (14-59) U/L Alkaline Phosphatase (46-116) U/L CK-MB (CK-2) (0-3.6) ng/ml Troponin I 0.196 H* (0.00-0.056) ng/mL C-Reactive Protein (<1.0) mg/dL NT-Pro-B Natriuret Pep (0-450) pg/mL Total Protein (6.4-8.2) g/dl Albumin (3.4-5.0) g/dl Globulin gm/dL Albumin/Globulin Ratio (1-2) TSH 3rd Generation (0.358-3.74) uIU/mL Influenza Type A RNA (NEGATIVE) Influenza Type B RNA (NEGATIVE) SARS-CoV-2 RNA (MADDY) (NEGATIVE) MRSA (PCR) 05/06/21 05/06/21 05/06/21 Range/Units 06:07 08:52 11:23 WBC (3.98-10.04) K/mm3 RBC (3.98-5.22) M/mm3 Hgb (11.2-15.7) gm/dl Hct (34.1-44.9) % MCV (79.4-94.8) fl MCH (25.6-32.2) pg MCHC (32.2-35.5) g/dl RDW Std Deviation (36.4-46.3) fL Plt Count (182-369) K/mm3 MPV (9.4-12.3) fl Neut % (Auto) (34.0-71.1) % Lymph % (Auto) (19.3-51.7) % Bent % (Auto) (4.7-12.5) % Eos % (Auto) (0.7-5.8) Baso % (Auto) (0.1-1.2) % Neut # (Auto) (1.56-6.13) K/mm3 Lymph # (Auto) (1.18-3.74) K/mm3 Bent # (Auto) (0.24-0.36) K/mm3 Eos # (Auto) (0.04-0.36) K/mm3 Baso # (Auto) (0.01-0.08) K/mm3 Manual Slide Review PT (9.7-12.0) SECONDS INR APTT (21.7-31.4) SECONDS Sodium (136-145) mEq/L Potassium (3.5-5.1) mEq/L Chloride (98-107) mEq/L Carbon Dioxide (21-32) mEq/L Anion Gap (5-15) BUN (7-18) mg/dL Creatinine (0.55-1.02) mg/dL Est Cr Clr Drug Dosing mL/min Estimated GFR (MDRD) (>60) mL/min BUN/Creatinine Ratio (14-18) Glucose (70-99) mg/dL POC Glucose 189 H 145 H (70-99) mg/dL Hemoglobin A1c ( - 5.6) % Lactic Acid 2.1 H* (0.4-2.0) mmol/L Calcium (8.5-10.1) mg/dL Magnesium (1.8-2.4) mg/dL Total Bilirubin (0.2-1.0) mg/dL AST (15-37) U/L ALT (14-59) U/L Alkaline Phosphatase (46-116) U/L CK-MB (CK-2) (0-3.6) ng/ml Troponin I (0.00-0.056) ng/mL C-Reactive Protein (<1.0) mg/dL NT-Pro-B Natriuret Pep (0-450) pg/mL Total Protein (6.4-8.2) g/dl Albumin (3.4-5.0) g/dl Globulin gm/dL Albumin/Globulin Ratio (1-2) TSH 3rd Generation (0.358-3.74) uIU/mL Influenza Type A RNA (NEGATIVE) Influenza Type B RNA (NEGATIVE) SARS-CoV-2 RNA (MADDY) (NEGATIVE) MRSA (PCR) 05/06/21 05/06/21 05/06/21 Range/Units 11:57 11:57 11:57 WBC (3.98-10.04) K/mm3 RBC (3.98-5.22) M/mm3 Hgb (11.2-15.7) gm/dl Hct (34.1-44.9) % MCV (79.4-94.8) fl MCH (25.6-32.2) pg MCHC (32.2-35.5) g/dl RDW Std Deviation (36.4-46.3) fL Plt Count (182-369) K/mm3 MPV (9.4-12.3) fl Neut % (Auto) (34.0-71.1) % Lymph % (Auto) (19.3-51.7) % Bent % (Auto) (4.7-12.5) % Eos % (Auto) (0.7-5.8) Baso % (Auto) (0.1-1.2) % Neut # (Auto) (1.56-6.13) K/mm3 Lymph # (Auto) (1.18-3.74) K/mm3 Bent # (Auto) (0.24-0.36) K/mm3 Eos # (Auto) (0.04-0.36) K/mm3 Baso # (Auto) (0.01-0.08) K/mm3 Manual Slide Review PT (9.7-12.0) SECONDS INR APTT (21.7-31.4) SECONDS Sodium (136-145) mEq/L Potassium (3.5-5.1) mEq/L Chloride (98-107) mEq/L Carbon Dioxide (21-32) mEq/L Anion Gap (5-15) BUN (7-18) mg/dL Creatinine (0.55-1.02) mg/dL Est Cr Clr Drug Dosing mL/min Estimated GFR (MDRD) (>60) mL/min BUN/Creatinine Ratio (14-18) Glucose (70-99) mg/dL POC Glucose (70-99) mg/dL Hemoglobin A1c ( - 5.6) % Lactic Acid (0.4-2.0) mmol/L Calcium (8.5-10.1) mg/dL Magnesium (1.8-2.4) mg/dL Total Bilirubin (0.2-1.0) mg/dL AST (15-37) U/L ALT (14-59) U/L Alkaline Phosphatase (46-116) U/L CK-MB (CK-2) 1.2 (0-3.6) ng/ml Troponin I 0.173 H* (0.00-0.056) ng/mL C-Reactive Protein 34.0 H* (<1.0) mg/dL NT-Pro-B Natriuret Pep (0-450) pg/mL Total Protein (6.4-8.2) g/dl Albumin (3.4-5.0) g/dl Globulin gm/dL Albumin/Globulin Ratio (1-2) TSH 3rd Generation 0.842 (0.358-3.74) uIU/mL Influenza Type A RNA (NEGATIVE) Influenza Type B RNA (NEGATIVE) SARS-CoV-2 RNA (MADDY) (NEGATIVE) MRSA (PCR) 05/06/21 05/06/21 Range/Units 11:57 17:06 WBC (3.98-10.04) K/mm3 RBC (3.98-5.22) M/mm3 Hgb (11.2-15.7) gm/dl Hct (34.1-44.9) % MCV (79.4-94.8) fl MCH (25.6-32.2) pg MCHC (32.2-35.5) g/dl RDW Std Deviation (36.4-46.3) fL Plt Count (182-369) K/mm3 MPV (9.4-12.3) fl Neut % (Auto) (34.0-71.1) % Lymph % (Auto) (19.3-51.7) % Bent % (Auto) (4.7-12.5) % Eos % (Auto) (0.7-5.8) Baso % (Auto) (0.1-1.2) % Neut # (Auto) (1.56-6.13) K/mm3 Lymph # (Auto) (1.18-3.74) K/mm3 Bent # (Auto) (0.24-0.36) K/mm3 Eos # (Auto) (0.04-0.36) K/mm3 Baso # (Auto) (0.01-0.08) K/mm3 Manual Slide Review PT (9.7-12.0) SECONDS INR APTT (21.7-31.4) SECONDS Sodium (136-145) mEq/L Potassium (3.5-5.1) mEq/L Chloride (98-107) mEq/L Carbon Dioxide (21-32) mEq/L Anion Gap (5-15) BUN (7-18) mg/dL Creatinine (0.55-1.02) mg/dL Est Cr Clr Drug Dosing mL/min Estimated GFR (MDRD) (>60) mL/min BUN/Creatinine Ratio (14-18) Glucose (70-99) mg/dL POC Glucose 132 H (70-99) mg/dL Hemoglobin A1c ( - 5.6) % Lactic Acid 1.7 (0.4-2.0) mmol/L Calcium (8.5-10.1) mg/dL Magnesium (1.8-2.4) mg/dL Total Bilirubin (0.2-1.0) mg/dL AST (15-37) U/L ALT (14-59) U/L Alkaline Phosphatase (46-116) U/L CK-MB (CK-2) (0-3.6) ng/ml Troponin I (0.00-0.056) ng/mL C-Reactive Protein (<1.0) mg/dL NT-Pro-B Natriuret Pep (0-450) pg/mL Total Protein (6.4-8.2) g/dl Albumin (3.4-5.0) g/dl Globulin gm/dL Albumin/Globulin Ratio (1-2) TSH 3rd Generation (0.358-3.74) uIU/mL Influenza Type A RNA (NEGATIVE) Influenza Type B RNA (NEGATIVE) SARS-CoV-2 RNA (MADDY) (NEGATIVE) MRSA (PCR) Med Orders - Current: Current Medications Acetaminophen (Acetaminophen 325 Mg Tab) 650 mg PO Q4H PRN PRN Reason: Pain (Mild 1-3)/fever Hydrocodone Bitart/Acetaminophen (Acetaminophen/Hydrocodone 325-5 Mg Tab) 1 tab PO Q4H PRN PRN Reason: Pain (moderate 4-6) Last Admin: 05/06/21 17:07 Dose: 1 tab Documented by: Artificial Tears (Carboxymethylcellulose Sodium 1% Ophth Gel 15 Ml Bottle) 0 ml EYEBOTH BID [facility] Last Admin: 05/06/21 09:25 Dose: 1 drop Documented by: Aspirin (Aspirin 81 Mg Tab.Ec) 81 mg PO DAILY [facility] Last Admin: 05/06/21 09:18 Dose: 81 mg Documented by: Heparin Sodium (Porcine) (Heparin Sodium 5,000 Units/Ml Vial) 5,000 units SUBCUT Q8H [facility] Last Admin: 05/06/21 09:18 Dose: 5,000 units Documented by: Hydromorphone HCl (Hydromorphone 0.5 Mg/0.5 Ml Syringe) 0.5 mg IVPUSH Q2H PRN PRN Reason: Pain (severe 7-10) Lactated Ringer's (Ringers, Lactated) 1,000 mls @ 100 mls/hr IV ASDIRECTED [facility] Last Admin: 05/06/21 15:11 Dose: 100 mls/hr Documented by: Piperacillin Sod/Tazobactam (Sod 4.5 gm/ Sodium Chloride) 100 mls @ 25 mls/hr IV Q12H [facility] Last Admin: 05/06/21 12:22 Dose: 25 mls/hr Documented by: Insulin Glargine (Insulin Glargine,Hum.Rec.Anlog 100 Unit/Ml 3 Ml Pen) 5 unit SUBCUT DAILY [facility] Insulin Human Lispro (Insulin Lispro 100 Unit/Ml 3 Ml Kwikpen) 0 unit SUBCUT Q6H [facility]; Protocol Last Admin: 05/06/21 12:03 Dose: Not Given Documented by: Levothyroxine Sodium (Levothyroxine 100 Mcg Tab) 100 mcg PO ACBREAKFAST [facility] Last Admin: 05/06/21 09:18 Dose: 100 mcg Documented by: Metoprolol Tartrate (Metoprolol Tartrate 5 Mg/5 Ml Sdv) 2.5 mg IVPUSH Q4H PRN PRN Reason: Tachycardia Ondansetron HCl (Ondansetron 4 Mg/2 Ml Sdv) 4 mg IV Q4H PRN PRN Reason: Nausea/Vomiting Simvastatin (Simvastatin 40 Mg Tab) 40 mg PO BEDTIME JAZIEL Zolpidem Tartrate (Zolpidem 5 Mg Tab) 5 mg PO BEDTIME PRN PRN Reason: Sleep Discontinued Medications Enoxaparin Sodium (Enoxaparin 30 Mg/0.3 Ml Syringe) 30 mg SUBCUT DAILY [facility] Piperacillin Sod/Tazobactam (Sod 4.5 gm/ Sodium Chloride) 100 mls @ 200 mls/hr IV ONETIME ONE Stop: 05/06/21 00:14 Last Admin: 05/06/21 00:13 Dose: 200 mls/hr Documented by: Lactated Ringer's (Ringers, Lactated) 500 mls @ 999 mls/hr IV ASDIRECTED [facility] Stop: 05/06/21 05:39 Last Admin: 05/06/21 05:35 Dose: 999 mls/hr Documented by: Lactated Ringer's (Ringers, Lactated) 1,000 mls @ 999 mls/hr IV .BOLUS ONE Stop: 05/06/21 08:36 Last Admin: 05/06/21 08:09 Dose: 999 mls/hr Documented by: Lactated Ringer's (Ringers, Lactated) 500 mls @ 999 mls/hr IV .BOLUS ONE Stop: 05/06/21 10:09 Last Admin: 05/06/21 10:12 Dose: 999 mls/hr Documented by: Insulin Aspart (Insulin Aspart Protamine/Insulin Aspart 70-30 100 Units/Ml 10 Ml Vial) 0 unit SUBCUT QIDACANDBED [facility]; Protocol Insulin Glargine (Insulin Glargine,Hum.Rec.Anlog 100 Unit/Ml 3 Ml Pen) 15 unit SUBCUT DAILY [facility] Last Admin: 05/06/21 09:25 Dose: 15 units Documented by: Insulin Human Lispro (Insulin Lispro 100 Unit/Ml 3 Ml Kwikpen) 0 unit SUBCUT WITHMEALSANDBED [facility]; Protocol Last Admin: 05/06/21 08:11 Dose: 2 units Documented by: Isosorbide Mononitrate (Isosorbide Mononitrate 30 Mg Tab.Er) 30 mg PO DAILY [facility] Last Admin: 05/06/21 09:25 Dose: Not Given Documented by: Metoprolol Tartrate (Metoprolol Tartrate 5 Mg/5 Ml Sdv) 5 mg IVPUSH ONETIME ONE Stop: 05/05/21 22:46 Last Admin: 05/05/21 23:50 Dose: 5 mg Documented by: - Exam General: Reports: Alert, Oriented, Cooperative Lungs: Reports: Normal Respiratory Effort Cardiovascular: Reports: Regular Rate, Regular Rhythm (with PACs) Physical Findings Comments:: Pain in the right buttock and right posterior thigh
[2021-05-06] MEDS ORDERED: Simvastatin 40 MG Tab PO SCH (21:00)
[2021-05-07] MEDS ORDERED: Insulin Glargine,Hum.Rec.Anlog 100 UNIT/ML 3 ML Pen SUBCUT SCH (09:00)
== END 2021-05-06 17:56 | DRG 871 ==
LOC: JD.ED 18:22 → JD.MS 21:14
PROVIDERS: ADMIT Surgery; ATTEND Surgery
DX: A41.89 Other specified sepsis (principal); I21.A1 Myocardial infarction type 2; K61.1 Rectal abscess; C20 Malignant neoplasm of rectum; I13.0 Hypertensive heart and chronic kidney disease with heart failure and stage 1 through stage 4 chronic kidney disease, or unspecified chronic kidney disease; E87.2 Acidosis; I48.91 Unspecified atrial fibrillation; N18.9 Chronic kidney disease, unspecified; R94.2 Abnormal results of pulmonary function studies; G25.81 Restless legs syndrome; Z85.048 Personal history of other malignant neoplasm of rectum, rectosigmoid junction, and anus; K21.9 Gastro-esophageal reflux disease without esophagitis; I50.9 Heart failure, unspecified; E11.69 Type 2 diabetes mellitus with other specified complication; E83.42 Hypomagnesemia; E53.8 Deficiency of other specified B group vitamins; E03.9 Hypothyroidism, unspecified; Z90.49 Acquired absence of other specified parts of digestive tract; N19 Unspecified kidney failure; Z90.710 Acquired absence of both cervix and uterus; Z86.718 Personal history of other venous thrombosis and embolism; Z79.01 Long term (current) use of anticoagulants; E78.00 Pure hypercholesterolemia, unspecified; Z88.2 Allergy status to sulfonamides; Z88.8 Allergy status to other drugs, medicaments and biological substances; Z79.02 Long term (current) use of antithrombotics/antiplatelets; Z79.82 Long term (current) use of aspirin; Z79.890 Hormone replacement therapy; Z79.4 Long term (current) use of insulin; Z79.899 Other long term (current) drug therapy; M19.90 Unspecified osteoarthritis, unspecified site; I11.0 Hypertensive heart disease with heart failure; F32.A Depression, unspecified; F03.90 Unspecified dementia, unspecified severity, without behavioral disturbance, psychotic disturbance, mood disturbance, and anxiety; Z20.822 Contact with and (suspected) exposure to COVID-19
CPT/HCPCS: 0240U; 36415; 51702; 71045; 71045-26; 80048; 80053; 82553; 82947; 83036; 83605; 83735; 83880; 84145; 84443; 84484; 85025; 85610; 85730; 86140; 87040; 87641; 93005; 93010; 93306; 99285; 99285-25; A9270-GY; J1644; J1815; J2543; J3490; J7120